=== PATIENT | female | born 1930 | race Caucasian/White ===

== ENCOUNTER 2017-06-10 09:00 | Emergency (ER) | payer MEDICARE ==
[2017-06-10 09:03] VITALS: BP 132/70; PULSE 86; RESP 17; TEMP 99.5
--- NOTE | 2017-06-10 09:25 | ED ---
Skin/Abscess/FB HPI - General Source: patient Mode of arrival: wheelchair Limitations: no limitations <Antonia Givens - Last Filed: 06/10/17 09:55> <Kaleb Awad - Last Filed: 06/10/17 10:01> - General Chief complaint: Skin/Abscess/Foreign Body Stated complaint: mouth sores Time Seen by Provider: 06/10/17 09:08 - History of Present Illness Initial comments: 86-year-old female patient presents to the emergency department today with caregiver for evaluation of rash to the right side of the face. Patient has history of dementia and is unable to provide history. Caregiver reports that rash started last evening and seemed to spread upon awakening this morning. He reports blistering to the face. States patient has been complaining of pain with a rash. He denies any fever or chills. Denies any drainage from the blisters. Caregiver denies any recent shortness breath, vomiting, diarrhea, constipation, weakness, hematuria, or urinary frequency. (Antonia iGvens) - Related Data Home Medications Medication Instructions Recorded Confirmed Calcium Carbonate [Antacid] 1,250 mg PO DAILY 07/01/13 02/24/15 Donepezil HCl [Aricept Odt] 10 mg PO DAILY 07/01/13 02/24/15 Aspirin 81 mg PO DAILY 10/10/13 02/24/15 Atorvastatin [Lipitor] 20 mg PO HS 10/10/13 02/24/15 Losartan Potassium [Cozaar] 50 mg PO DAILY 10/10/13 02/24/15 Levothyroxine Sodium [Synthroid] 50 mcg PO DAILY 01/13/15 02/24/15 Memantine [Namenda] 5 mg PO DAILY 01/13/15 02/24/15 Multivitamins, Thera [Theragran] 1 each PO DAILY@1200 01/13/15 02/24/15 [place]-3 Acid Ethyl Esters [Lovaza] 1 gm PO DAILY 01/13/15 02/24/15 Omeprazole [PriLOSEC] 20 mg PO AC-BRKFST 01/13/15 02/24/15 Sertraline HCl [Zoloft] 50 mg PO DAILY 01/13/15 02/24/15 ALPRAZolam [Xanax] 0.5 mg PO TID PRN 02/24/15 02/24/15 Cranberry Fruit Concentrate [Azo 500 mg PO DAILY 02/24/15 02/24/15 Cranberry] Ibuprofen [Advil] 200 mg PO Q6HR PRN 02/24/15 02/24/15 diphenhydrAMINE [Benadryl] 25 mg PO HS PRN 02/24/15 02/24/15 hydrOXYzine HCL [Atarax] 25 mg PO TID PRN 02/24/15 02/24/15 Previous Rx's Medication Instructions Recorded HYDROcodone/APAP 5-325MG [[place] 1 tab PO Q6HR PRN #30 tab 02/24/15 5-325] Bacitracin Oint 1 applic TOPICAL BID #15 gm 06/10/17 valACYclovir HCL [Valacyclovir] 1,000 mg PO TID #21 tab 06/10/17 Allergies Allergy/AdvReac Type Severity Reaction Status Date / Time No Known Allergies Allergy Verified 06/10/17 09:01 Review of Systems ROS Other: All systems not noted in ROS Statement are negative. <Antonia Givens - Last Filed: 06/10/17 09:55> ROS Other: All systems not noted in ROS Statement are negative. <Kaleb Awad - Last Filed: 06/10/17 10:01> ROS Statement: Those systems with pertinent positive or pertinent negative responses have been documented in the HPI. Past Medical History Past Medical History: Cancer, CVA/TIA, Dementia, Hyperlipidemia, Hypertension, Osteoarthritis (OA), Thyroid Disorder Additional Past Medical History / Comment(s): Stomach ulcer, hx bladder cancer History of Any Multi-Drug Resistant Organisms: None Reported Past Surgical History: Hysterectomy Additional Past Surgical History / Comment(s): Unknown Past Anesthesia/Blood Transfusion Reactions: No Reported Reaction Past Psychological History: Anxiety, Depression Smoking Status: Never smoker Past Alcohol Use History: None Reported Past Drug Use History: None Reported - Past Family History Mother Family Medical History: Cancer, Rheumatoid Arthritis (RA) Father Family Medical History: Coronary Artery Disease (CAD), CVA/TIA <Antonia Givens - Last Filed: 06/10/17 09:55> General Exam Limitations: no limitations General appearance: alert, in no apparent distress, other (This is a thin appearing elderly female patient in no acute distress. Vital signs upon presentation are temperature 99.5F, pulse 86, respirations 17, blood pressure 132/70, pulse ox 100% on room air.) Eye exam: Present: normal appearance, PERRL, EOMI. Absent: scleral icterus, conjunctival injection, periorbital swelling ENT exam: Present: mucous membranes moist, TM's normal bilaterally, normal external ear exam (Right ear is tender to touch however there is no evidence of vesicles or erythema on the right external auditory canal), other (Patient has blisters noted to the right lower lip, there is swelling and surrounding erythema. There is also a flat erythematous rash noted extending from the right lower lip up the right side of the face to near the ear.). Absent: normal exam Neck exam: Present: normal inspection. Absent: tenderness, meningismus, lymphadenopathy Respiratory exam: Present: normal lung sounds bilaterally. Absent: respiratory distress, wheezes, rales, rhonchi, stridor Cardiovascular Exam: Present: regular rate, normal rhythm, normal heart sounds. Absent: systolic murmur, diastolic murmur, rubs, gallop, clicks GI/Abdominal exam: Present: soft, normal bowel sounds. Absent: distended, tenderness, guarding, rebound, rigid Neurological exam: Present: alert, CN II-XII intact. Absent: oriented X3 ( Oriented 0) Psychiatric exam: Present: normal affect, normal mood Skin exam: Present: warm, dry, intact, normal color, rash (As discussed in ENT exam) <Antonia Givens - Last Filed: 06/10/17 09:55> Course <Antonia Givens - Last Filed: 06/10/17 09:55> <Kaleb Awad - Last Filed: 06/10/17 10:01> Vital Signs 06/10/17 09:01 Temperature 99.5 F Pulse Rate 86 Respiratory 17 Rate Blood Pressure 132/70 O2 Sat by Pulse 100 Oximetry - Reevaluation(s) Reevaluation #1: 06/10/17 10:00 I did personally do a [id number] evaluation the patient did discuss findings with her and her caregiver. The presentation is consistent with a herpes zoster of the face on the right side. I do agree with the assessment and plan. (Kaleb Awad) Medical Decision Making <Antonia Givens - Last Filed: 06/10/17 09:55> <Kaleb Awad - Last Filed: 06/10/17 10:01> - Medical Decision Making 86-year-old female patient presented to the emergency department today with caregiver for evaluation of rash to the right side of the face. Rash appears consistent with a herpes zoster infection. We will treat patient with valacyclovir. Did prescribe bacitracin to apply to open wounds. Caregiver is present, return parameters discussed in detail. They're instructed to follow- up with the primary care physician for recheck in 1-2 days. He verbalizes understanding and agrees with this plan. (Antonia Givens) Disposition Is patient prescribed a controlled substance at d/c from ED?: No Time of Disposition: 09:25 <Antonia Givens - Last Filed: 06/10/17 09:55> <Kaleb Awad - Last Filed: 06/10/17 10:01> Clinical Impression: Herpes zoster Disposition: HOME SELF-CARE Condition: Good Instructions: Shingles (ED) Additional Instructions: Take medications as directed. Apply topical antibiotic ointment to prevent infection. Follow up with the primary care physician for recheck in 1-2 days. Return here immediately for any new, worsening, or concerning symptoms. Prescriptions: Bacitracin Oint 1 applic TOPICAL BID #15 gm valACYclovir HCL [Valacyclovir] 1,000 mg PO TID #21 tab Referrals: Devonte Pan MD [Primary Care Provider] - 1-2 days
== END 2017-06-10 09:44 | disposition home or self-care (01) ==
LOC: EC 09:00
DX: B02.9 Zoster without complications (principal); F03.90 Unspecified dementia, unspecified severity, without behavioral disturbance, psychotic disturbance, mood disturbance, and anxiety; E78.5 Hyperlipidemia, unspecified; E07.9 Disorder of thyroid, unspecified; I10 Essential (primary) hypertension; F41.9 Anxiety disorder, unspecified; F32.9 Major depressive disorder, single episode, unspecified; Z85.42 Personal history of malignant neoplasm of other parts of uterus; Z86.73 Personal history of transient ischemic attack (TIA), and cerebral infarction without residual deficits; Z79.82 Long term (current) use of aspirin; Z79.899 Other long term (current) drug therapy
CPT/HCPCS: 99282

== ENCOUNTER 2017-08-15 14:43 | Inpatient (IN) | payer MEDICARE ==
--- NOTE | 2017-08-15 14:53 | ED ---
General Adult HPI - General Stated complaint: lt hip pain Time Seen by Provider: 08/15/17 14:43 Source: EMS, RN notes reviewed, old records reviewed Mode of arrival: EMS - History of Present Illness Initial comments: This is a 86-year-old female history dementia history of CVA history of anemia who is brought in by EMS with complaints of left hip pain. No recent falls or reported but apparently the patient has had episodes of falls last one being approximately week ago. She per report was ambulatory. She does seem to have pain with any type of palpation there is some questionable shortening of the left lower extremity compared to the right. No reports of fevers chills nausea vomiting sweats diarrhea constipation or other symptoms at this time. The patient is a poor historian - Related Data Home Medications Medication Instructions Recorded Confirmed Calcium Carbonate [Antacid] 1,250 mg PO DAILY 07/01/13 02/24/15 Donepezil HCl [Aricept Odt] 10 mg PO DAILY 07/01/13 02/24/15 Aspirin 81 mg PO DAILY 10/10/13 02/24/15 Atorvastatin [Lipitor] 20 mg PO HS 10/10/13 02/24/15 Losartan Potassium [Cozaar] 50 mg PO DAILY 10/10/13 02/24/15 Levothyroxine Sodium [Synthroid] 50 mcg PO DAILY 01/13/15 02/24/15 Memantine [Namenda] 5 mg PO DAILY 01/13/15 02/24/15 Multivitamins, Thera [Theragran] 1 each PO DAILY@1200 01/13/15 02/24/15 [place]-3 Acid Ethyl Esters [Lovaza] 1 gm PO DAILY 01/13/15 02/24/15 Omeprazole [PriLOSEC] 20 mg PO AC-BRKFST 01/13/15 02/24/15 Sertraline HCl [Zoloft] 50 mg PO DAILY 01/13/15 02/24/15 ALPRAZolam [Xanax] 0.5 mg PO TID PRN 02/24/15 02/24/15 Cranberry Fruit Concentrate [Azo 500 mg PO DAILY 02/24/15 02/24/15 Cranberry] Ibuprofen [Advil] 200 mg PO Q6HR PRN 02/24/15 02/24/15 diphenhydrAMINE [Benadryl] 25 mg PO HS PRN 02/24/15 02/24/15 hydrOXYzine HCL [Atarax] 25 mg PO TID PRN 02/24/15 02/24/15 Previous Rx's Medication Instructions Recorded HYDROcodone/APAP 5-325MG [[place] 1 tab PO Q6HR PRN #30 tab 02/24/15 5-325] Bacitracin Oint 1 applic TOPICAL BID #15 gm 06/10/17 valACYclovir HCL [Valacyclovir] 1,000 mg PO TID #21 tab 06/10/17 Allergies Allergy/AdvReac Type Severity Reaction Status Date / Time No Known Allergies Allergy Verified 08/15/17 15:42 Review of Systems ROS Statement: Those systems with pertinent positive or pertinent negative responses have been documented in the HPI. ROS Other: All systems not noted in ROS Statement are negative. Limitations: ROS unobtainable due to patients medical condition Past Medical History Past Medical History: Cancer, CVA/TIA, Dementia, Hyperlipidemia, Hypertension, Osteoarthritis (OA), Thyroid Disorder Additional Past Medical History / Comment(s): Stomach ulcer, hx bladder cancer History of Any Multi-Drug Resistant Organisms: None Reported Past Surgical History: Hysterectomy Additional Past Surgical History / Comment(s): Unknown Past Anesthesia/Blood Transfusion Reactions: No Reported Reaction Past Psychological History: Anxiety, Depression Smoking Status: Never smoker Past Alcohol Use History: None Reported Past Drug Use History: None Reported - Past Family History Mother Family Medical History: Cancer, Rheumatoid Arthritis (RA) Father Family Medical History: Coronary Artery Disease (CAD), CVA/TIA General Exam - General Exam Comments Initial Comments: This is a well-developed asthenic appearing female who is moaning at this time however this does appear to be her normal behavior per paramedics. General appearance: alert, anxious Head exam: Present: atraumatic, normocephalic, normal inspection Eye exam: Present: normal appearance, PERRL, EOMI. Absent: scleral icterus, conjunctival injection, periorbital swelling ENT exam: Present: normal exam, mucous membranes moist Neck exam: Present: normal inspection. Absent: tenderness, meningismus, lymphadenopathy Respiratory exam: Present: normal lung sounds bilaterally. Absent: respiratory distress, wheezes, rales, rhonchi, stridor Cardiovascular Exam: Present: regular rate, normal rhythm, normal heart sounds. Absent: systolic murmur, diastolic murmur, rubs, gallop, clicks GI/Abdominal exam: Present: soft, normal bowel sounds. Absent: distended, tenderness, guarding, rebound, rigid Extremities exam: Present: tenderness (Tenderness palpation of the left hip no definite step-off or crepitation there is some question of shortening but no rotation left lower extremity compared to the right.), normal capillary refill. Absent: pedal edema, joint swelling, calf tenderness Back exam: Present: full ROM, other (Mild kyphosis is demonstrated.). Absent: tenderness, CVA tenderness (R), CVA tenderness (L), muscle spasm, paraspinal tenderness Neurological exam: Present: alert, altered, CN II-XII intact Psychiatric exam: Present: normal affect, normal mood Skin exam: Present: warm, dry, intact, normal color. Absent: rash Course Vital Signs 08/15/17 14:49 Temperature 98.4 F Pulse Rate 99 Respiratory 16 Rate Blood Pressure 117/63 O2 Sat by Pulse 95 Oximetry EKG Findings - EKG Results: EKG: interpreted by ERMD (Sinus rhythm rate 94. Interval 122 QRS 104 QT since QTC of 460/520 evidence of incomplete right bundle-branch block and prolonged QT.) Medical Decision Making - Medical Decision Making I did discuss findings with the patient's daughter who was present. Patient will be admitted to orthopedics, Dr. Carney service, I did discuss the case with Ree Tucker. Dr. Rao will be consulted for medical clearance. - Radiology Data Radiology results: report reviewed (I did review the imaging and reports are is evidence of a surgical neck fracture left hip.), image reviewed Disposition Clinical Impression: Fracture of hip Disposition: ADMITTED IP TO THIS [facility] Condition: Stable Referrals: Devonte Pan MD [Primary Care Provider] - 1-2 days
[2017-08-15] MEDS ORDERED: ACETAMINOPHEN IV (For NPO) 1,000 MG in SALINE 1 100ML.BAG IVPB STA (15:16)
[2017-08-15] MEDS ORDERED: NALOXONE 0.4 MG/ML 1 ML VIAL IV PRN (15:27)
[2017-08-15] MEDS ORDERED: diphenhydrAMINE 25 MG CAP PO PRN (15:32)
[2017-08-15] MEDS ORDERED: ALPRAZolam 0.5 MG TAB PO PRN (15:32)
[2017-08-15] MEDS ORDERED: hydrOXYzine HCL 25 MG TAB PO PRN (15:32)
[2017-08-15 15:47] LABS: Basophils % (A) 0 %; Eosinophils % (A) 0 %; HGB 10.9 gm/dL (11.4-16.0); Lymphocytes % (A) 9 %; MCH 29.7 pg (25.0-35.0); MCHC 33.1 g/dL (31.0-37.0); MCV 89.7 fL (80.0-100.0); Mean Platelet Volume 7.1; Monocytes # (A) 0.6 k/uL (0-1.0); Monocytes % (A) 6 %; Neutrophils # (A) 8.6 k/uL (1.3-7.7); Neutrophils % (A) 83 %; Platelet Count 239 k/uL (150-450); RBC 3.68 m/uL (3.80-5.40); RDW 15.4 % (11.5-15.5); WBC 10.3 k/uL (3.8-10.6)
[2017-08-15 15:53] LABS: Amorphous Sediment,Urine Rare /hpf; Appearance,Urine Turbid (Clear); Bacteria,Urine Many /hpf; Bilirubin,Urine Negative (Negative); Blood,Urine Large (Negative); Color,Urine Yellow; Glucose,Urine (UA) Negative (Negative); Ketones,Urine Negative (Negative); Leukocyte Esterase,Urine Large (Negative); Mucus,Urine Rare /hpf; Nitrite,Urine Negative (Negative); PH, Urine 5.5 (5.0-8.0); Protein,Urine 1+ (Negative); RBC,Urine 120 /hpf (0-5); Specific Gravity,Urine 1.017 (1.001-1.035); Squamous Epithelial Cell,Urine 44 /hpf (0-4); Urobilinogen,Urine <2.0 mg/dL (<2.0); WBC,Urine 18 /hpf (0-5)
--- NOTE | 2017-08-15 15:53 | XR ---
EXAMINATION TYPE: XR Hip LT and AP Pelvis DATE OF EXAM: 08/15/2017 COMPARISON: Previous exam 02/24/2015 HISTORY: Trauma and pain TECHNIQUE: A single AP view of the pelvis is obtained. Two views of the left hip are obtained. FINDINGS: There is an intertrochanteric proximal left femoral fracture with resulting varus deformity . Bone mineralization is decreased. No evident dislocation. Vascular calcifications noted incidentall y. Degenerative disc change again noted in the lower lumbar spine. IMPRESSION: Proximal left femoral fracture
[2017-08-15 15:58] LABS: ALT 26 U/L (9-52); AST 38 U/L (14-36); Albumin 3.1 g/dL (3.5-5.0); Alkaline Phosphatase 132 U/L (38-126); Anion Gap 13 mmol/L; Blood Urea Nitrogen 15 mg/dL (7-17); Carbon Dioxide 23 mmol/L (22-30); Chloride 107 mmol/L (98-107); Glucose 158 mg/dL (74-99); Potassium 4.1 mmol/L (3.5-5.1); Sodium 143 mmol/L (137-145); Total Bilirubin 0.6 mg/dL (0.2-1.3); Total Protein 5.9 g/dL (6.3-8.2)
--- NOTE | 2017-08-15 15:58 | XR ---
EXAMINATION TYPE: XR chest 1V DATE OF EXAM: 08/15/2017 COMPARISON: Prior chest x-ray 02/24/2015 HISTORY: Left hip pain from fall, fracture TECHNIQUE: Single frontal view of the chest is obtained. FINDINGS: The chest wall deformities on the left are again noted and are stable. There is no evident pneumothorax or pleural effusion. There are also right sided rib fractures again noted. Cardiac medi astinal silhouette, pulmonary vascularity and eusebio are stable. IMPRESSION: No acute process. Old trauma changes.
[2017-08-15] MEDS: SODIUM CHLORIDE 0.9% 1,000 ML IV SCH (16:02)
[2017-08-15 16:06] LABS: Calcium 6.1 mg/dL (8.4-10.2)
[2017-08-15 17:09] VITALS: BMI 24.5
[2017-08-15 17:14] LABS: INR 1.2 (<1.2); Prothrombin Time 11.1 sec (9.0-12.0)
[2017-08-15] MEDS: HYDROmorphone 0.5 MG/0.5 ML SYRINGE IVP PRN ×2 (18:01→21:26)
[2017-08-15] MEDS ORDERED: SENNOSIDES-DOCUSATE SODIUM 1 EACH TAB PO PRN (19:52)
[2017-08-15] MEDS ORDERED: clonazePAM 0.5 MG TAB PO PRN (19:52)
--- NOTE | 2017-08-15 20:15 | XR ---
EXAMINATION TYPE: XR Hip Limited LT DATE OF EXAM: 08/15/2017 COMPARISON: Today HISTORY: Traction. Hip fracture TECHNIQUE: Single view. FINDINGS: There is fracture of the base of the femoral neck with coxa vera deformity. There is no change in pos ition compared to exam earlier today at 3:00 PM. There is no dislocation. IMPRESSION: Femoral neck fracture. No change in position.
--- NOTE | 2017-08-15 20:25 | CONS ---
CONSULTATION DATE OF CONSULTATION: 08/15/17. REASON FOR CONSULTATION: Medical management requested by Dr. Carney. CONSULTATION: This 86-year-old patient who is a resident of [facility], being followed by visiting physician Dr. Pan. The patient's daughter is at the bedside who provides most of the history. Chronic stable medical conditions include dementia, hypertension, hyperlipidemia, osteoarthritis, urine incontinence. At baseline, the patient has got a expressive aphasia. The patient can just about recognize some people. Patient is able to feed herself as a baseline and uses Depends. The patient is pretty much wheelchair- bound. Earlier today the patient went to move in bed and the patient was in increasing pain in the left hip area. The patient had fallen about a week or 10 days ago. The patient is brought into the ER. The patient's hip x-ray showed a proximal left femoral fracture. Hence, she was admitted. There is no cardiac history and of course patient exercise tolerance is very limited. The patient herself is not really able to say much. REVIEW OF SYSTEMS: Cannot be obtained as the patient has aphasia. Most of the supportive history is obtained by the daughter at the bedside. PAST MEDICAL HISTORY: Dementia, hypertension, hyperlipidemia, osteoarthritis, hypothyroid, anxiety, depression, gait dysfunction. PAST SURGICAL HISTORY: Hysterectomy. SOCIAL HISTORY: The patient drinks 3-4 glasses of wine per week. No smoking. Currently a resident of [facility]. FAMILY HISTORY: Rheumatoid arthritis. HOME MEDICATIONS: 1. Xylocaine viscous 2% 1 dose mucous membrane t.i.d. p.r.n. 2. Tylenol Extra Strength 1000 mg q.4 p.r.n. 3. Atarax 25 mg t.i.d. p.r.n. 4. Senokot S 1 tablet p.o. daily p.r.n. 5. Advil 200 mg q.6h p.r.n. 6. Klonopin 0.5 q.8h p.r.n. 7. Benadryl 25 mg q.6h p.r.n. 8. [place] 5 one tab b.i.d. p.r.n. 9. Xanax 0.5 p.o. t.i.d. p.r.n. 10.Prilosec 20 mg p.o. daily. 11.Vitamin D2 42224 units p.o. every 7 days. 12.Zoloft 50 mg p.o. q.h.s. 13.Sensipar 30 mg p.o. b.i.d. 14.Mycostatin 1 application topical b.i.d. 15.Cozaar 25 mg p.o. daily. 16.Synthroid 50 mcg a day. ALLERGIES: None. PHYSICAL EXAMINATION: Temperature 97.7, pulse 98, respiration 16, blood pressure 110/70, pulse ox 96% on room air. GENERAL APPEARANCE: Thin build, lying in bed, lethargic. EYES: Pupils equal. Conjunctivae normal. HEENT: External appearance of nose and ears normal. Oral cavity dry. NECK: JVD unable to assess. Mass not palpable. RESPIRATORY: Effort normal. Lungs, slightly decreased breath sounds. CARDIOVASCULAR: First and second sounds, no edema. ABDOMEN: Soft, nontender. Liver and spleen not palpable. LYMPHATIC: No lymph node palpable in the neck or axillae. PSYCHIATRY: Patient is lethargic, not able to assess. NEUROLOGICAL: Pupils equal. No facial asymmetry. Is moving upper limbs. LOWER EXTREMITIES: Limited range of motion of the left hip. MUSCULOSKELETAL: Evidence of osteoarthritis especially in the hands. Limited range of motion of the left hip. INVESTIGATIONS: White count 10.3, hemoglobin 10.9, potassium 4.1, calcium 6.1, albumin 3.1. UA showing 44 squamous epithelial cells. ASSESSMENT: 1. Acute left femoral neck fracture, probably spontaneous. 2. Severe osteopenia. 3. Primary osteoarthritis of multiple joints. 4. 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 5. Normocytic anemia cause unknown. 6. Hypertension. 7. Hyperlipidemia. 8. Hypothyroidism. 9. Chronic dysphagia. PLAN: Given that patient has limited mobility at a baseline, I am not sure if surgical repair will be of any benefit to the patient. Will let Orthopedics make a further determination of the same. If the patient is to proceed for surgery, she is going to be at a moderate risk because of fragile bones and multiple comorbidities and given her age. There is no otherwise absolute contraindication to surgery. Patient is already on subcu heparin for DVT prophylaxis. Care was discussed at length with the daughter at the bedside. The patient's code status is DO NOT RESUSCITATE. Thank you Dr. Carney. MMODL / IJN: [id number] /
[2017-08-15] MEDS: CINACALCET 30 MG TAB PO SCH (21:22)
[2017-08-15] MEDS: NYSTATIN 100,000 UNIT/GM POWD 15 GM TOPICAL SCH (21:25)
[2017-08-15] MEDS: HEPARIN SODIUM,PORCINE 5,000 UNIT/ML 1 ML VIAL SQ SCH (21:26)
[2017-08-16] MEDS: HYDROmorphone 0.5 MG/0.5 ML SYRINGE IVP PRN ×3 (04:39→16:59)
[2017-08-16] MEDS: LOSARTAN 50 MG TAB PO SCH (07:44)
--- NOTE | 2017-08-16 08:26 | P.HPOR ---
History of Present Illness H&P Date: 08/16/17 This is an 86-year-old female who was admitted for a left hip fracture after a fall. Patient's past medical history is significant for dementia, hypertension , hyperlipidemia, and urinary incontinence. Patient is a poor historian, and daughter is present in the room. The patient's daughter states that the patient has had 2 falls over the last month. Daughter states that the patient was complaining of severe pain when the nurses were trying to get her out of bed yesterday at her assisted living center. The patient was then brought to the emergency room for evaluation and admitted as an inpatient. Unable to obtain ROS as the patient is nonverbal. Review of Systems See HPI. Past Medical History Past Medical History: Cancer, CVA/TIA, Dementia, Hyperlipidemia, Hypertension, Osteoarthritis (OA), Thyroid Disorder Additional Past Medical History / Comment(s): Stomach ulcer, hx bladder cancer History of Any Multi-Drug Resistant Organisms: None Reported Past Surgical History: Hysterectomy Additional Past Surgical History / Comment(s): Unknown Past Anesthesia/Blood Transfusion Reactions: No Reported Reaction Past Psychological History: Anxiety, Depression Smoking Status: Never smoker Past Alcohol Use History: None Reported Additional Past Alcohol Use History / Comment(s): 3-4 GLASSES WINE PER WEEK Past Drug Use History: None Reported - Past Family History Mother Family Medical History: Cancer, Rheumatoid Arthritis (RA) Father Family Medical History: Coronary Artery Disease (CAD), CVA/TIA Medications and Allergies Home Medications Medication Instructions Recorded Confirmed Type Levothyroxine Sodium [Synthroid] 50 mcg PO DAILY 01/13/15 08/15/17 History Omeprazole [PriLOSEC] 20 mg PO DAILY 01/13/15 08/15/17 History Sertraline HCl [Zoloft] 50 mg PO HS 01/13/15 08/15/17 History ALPRAZolam [Xanax] 0.5 mg PO TID PRN 02/24/15 08/15/17 History Ibuprofen [Advil] 200 mg PO Q6HR PRN 02/24/15 08/15/17 History diphenhydrAMINE [Benadryl] 25 mg PO Q6HR PRN 02/24/15 08/15/17 History hydrOXYzine HCL [Atarax] 25 mg PO TID PRN 02/24/15 08/15/17 History Acetaminophen [Tylenol Extra 1,000 mg PO Q4HR PRN 08/15/17 08/15/17 History Strength] Cinacalcet HCl [Sensipar] 30 mg PO BID 08/15/17 08/15/17 History Ergocalciferol [Vitamin D2] 50,000 unit PO Q7D 08/15/17 08/15/17 History HYDROcodone/APAP 5-325MG [Shipman 1 tab PO BID PRN 08/15/17 08/15/17 History 5-325] Lidocaine Viscous [Xylocaine 1 dose MUCOUS MEM TID PRN 08/15/17 08/15/17 History Viscous 2%] Losartan [Cozaar] 25 mg PO DAILY 08/15/17 08/15/17 History Nystatin 100,000 Unit/gm Powd 1 applic TOPICAL BID 08/15/17 08/15/17 History [Mycostatin Powder] Sennosides-Docusate Sodium 1 tab PO DAILY PRN 08/15/17 08/15/17 History [Senokot-S] clonazePAM [KlonoPIN] 0.5 mg PO Q8HR PRN 08/15/17 08/15/17 History Allergies Allergy/AdvReac Type Severity Reaction Status Date / Time No Known Allergies Allergy Verified 08/15/17 15:42 Physical Examination On exam patient is lying in bed in no acute distress. Patient has dementia and is nonverbal. There is pain in the left hip with logroll of the left lower extremity. There is mild shortening of the left lower extremity. Left lower extremity is warm and well perfused. Sensation intact. Dorsalis pedis pulse 2+ . Neurovascular status and circulatory status are intact. Results X-rays of the left hip and pelvis with and without traction show a displaced femoral neck fracture of the left femur. - Labs Labs: Abnormal Lab Results - Last 24 Hours (Table) 08/15/17 08/15/17 08/15/17 Range/Units 15:20 15:20 15:20 RBC 3.68 L (3.80-5.40) m/uL Hgb 10.9 L (11.4-16.0) gm/dL Hct 33.0 L (34.0-46.0) % Neutrophils # 8.6 H (1.3-7.7) k/uL INR (<1.2) Glucose 158 H (74-99) mg/dL Calcium 6.1 L* (8.4-10.2) mg/dL AST 38 H (14-36) U/L Alkaline Phosphatase 132 H (38-126) U/L Total Creatine Kinase (30-135) U/L CK-MB (CK-2) (0.0-2.4) ng/mL Total Protein 5.9 L (6.3-8.2) g/dL Albumin 3.1 L (3.5-5.0) g/dL Urine Appearance Turbid H (Clear) Urine Protein 1+ H (Negative) Urine Blood Large H (Negative) Ur Leukocyte Esterase Large H (Negative) Urine RBC 120 H (0-5) /hpf Urine WBC 18 H (0-5) /hpf Urine WBC Clumps Moderate H (None) /hpf Ur Squamous Epith Cells 44 H (0-4) /hpf Amorphous Sediment Rare H (None) /hpf Urine Bacteria Many H (None) /hpf Urine Mucus Rare H (None) /hpf 08/15/17 08/15/17 Range/Units 16:34 16:34 RBC (3.80-5.40) m/uL Hgb (11.4-16.0) gm/dL Hct (34.0-46.0) % Neutrophils # (1.3-7.7) k/uL INR 1.2 H (<1.2) Glucose (74-99) mg/dL Calcium (8.4-10.2) mg/dL AST (14-36) U/L Alkaline Phosphatase (38-126) U/L Total Creatine Kinase 377 H (30-135) U/L CK-MB (CK-2) 5.0 H* (0.0-2.4) ng/mL Total Protein (6.3-8.2) g/dL Albumin (3.5-5.0) g/dL Urine Appearance (Clear) Urine Protein (Negative) Urine Blood (Negative) Ur Leukocyte Esterase (Negative) Urine RBC (0-5) /hpf Urine WBC (0-5) /hpf Urine WBC Clumps (None) /hpf Ur Squamous Epith Cells (0-4) /hpf Amorphous Sediment (None) /hpf Urine Bacteria (None) /hpf Urine Mucus (None) /hpf H & H 08/15/17 Range/Units 15:20 Hgb 10.9 L (11.4-16.0) gm/dL Hct 33.0 L (34.0-46.0) % Coagulation 08/15/17 Range/Units 16:34 INR 1.2 H (<1.2) Result Diagrams: 08/15/17 15:20 08/15/17 15:20 Assessment and Plan (1) Closed left hip fracture Current Visit: Yes Status: Acute Code(s): S72.002A - FRACTURE OF UNSP PART OF NECK OF LEFT FEMUR, INIT SNOMED Code(s): 224189255 (2) Fall Current Visit: No Status: Acute Code(s): W19.XXXA - UNSPECIFIED FALL, INITIAL ENCOUNTER SNOMED Code(s): 6782923 Plan: 1. Patient is to be NPO. 2. Nonweightbearing to the left lower extremity. 3. Continue pain control. 4. Appreciate input from medicine. 5. Closed reduction an intramedullary hip screw fixation scheduled for today pending consent.
[2017-08-16] MEDS: LEVOTHYROXINE 50 MCG TAB PO SCH (09:07)
[2017-08-16] MEDS: CINACALCET 30 MG TAB PO SCH ×2 (09:07→20:00)
[2017-08-16] MEDS: DONEPEZIL 10 MG TAB PO SCH (09:07)
[2017-08-16] MEDS: PANTOPRAZOLE 40 MG TABLET PO SCH (09:08)
[2017-08-16] MEDS: SERTRALINE 50 MG TAB PO SCH (09:08)
[2017-08-16] MEDS: MEMANTINE 5 MG TAB PO SCH (09:08)
[2017-08-16] MEDS: NYSTATIN 100,000 UNIT/GM POWD 15 GM TOPICAL SCH ×2 (09:08→20:00)
[2017-08-16] MEDS: HEPARIN SODIUM,PORCINE 5,000 UNIT/ML 1 ML VIAL SQ SCH (09:08)
[2017-08-16] MEDS ORDERED: IV FLUID CONTINUATION 650 ML IV ONE (09:18)
[2017-08-16] MEDS ORDERED: MAGNESIUM HYDROXIDE 2,400 MG/10 ML CUP PO PRN (09:21)
[2017-08-16] MEDS ORDERED: ceFAZolin IN SWFI 2 GM/20 ML SYRINGE IVP ONE (09:23)
[2017-08-16] MEDS ORDERED: LACTATED RINGERS 1,000 ML IV ONE (11:11)
--- NOTE | 2017-08-16 11:16 | P.OP ---
Date of Procedure: 08/16/17 Preoperative Diagnosis: Intertrochanteric fracture left hip Postoperative Diagnosis: Intertrochanteric fracture left hip Procedure(s) Performed: Close reduction and intramedullary hip screw fixation left hip Implants: [employer] intertan nail 125, 11.5 mm x 18 cm. [employer] Intertan integrated interlocking lag screw, 90 mm lag screw, 85 mm compression screw. [employer] L-P screw, 5.0 mm x 32.5 mm. Anesthesia: spinal Surgeon: Anderson [employer] Waiter/Waitress #1: Ree Tucker Estimated Blood Loss (ml): 50 Pathology: none sent Condition: stable Disposition: PACU Indications for Procedure: This is an 86-year-old female that fell at home a few days ago. She is brought to the emergency room for evaluation and found to have an intertrochanteric fracture of her left hip. After discussing the surgical and nonsurgical treatment options with her family at length, I recommended a close reduction and intramedullary hip screw fixation of her left hip. Informed consent was obtained. Operative Findings: The operative findings are consistent with a displaced intertrochanteric fracture of the left hip. Description of Procedure: The patient was seen in the preoperative area, consent was reviewed, and the operative site was marked with a skin marker. The patient was brought to the operating room and placed on the operating room table. Anesthesia was administered by the anesthesia department. 2 g of Ancef were administered intravenously. The patient was placed supine on the fracture table with the fractured extremity in traction boot. His other extremity was placed in a well leg oh and his bony prominences were padded. A universal timeout was then performed which confirmed the patient's name, surgical site, ALLERGIES, and consent. Fracture reduction was performed with traction and adduction maneuver which was confirmed with fluoroscopy. After reduction was performed, his extremity was then prepped and draped in the usual sterile fashion. Utilizing fluoroscopy to identify the tip of the greater trochanter, a 3 cm incision was made just proximal to the greater trochanter. Utilizing a curved awl, the starting hole was created at the tip of the greater trochanter and centralized in the AP plane. These locations were confirmed by fluoroscopy. Guidewire was then inserted down the medullary canal. Sequentially reaming of the femur was performed to 13 mm distally and 17 mm proximally. After reaming, appropriate size nail was inserted over the guidewire. The nail was inserted to the appropriate depth and the guidewire was removed. The lag screw targeting device was placed in the jig and a small skin incision was made and the targeting guide was placed down to bone. Utilizing the distally threaded guidewire, the guidewire was placed in the appropriate position in the femoral head, both anterior, posterior and mediolateral. Next, the drill for the second screw was then placed through the guide and drilled to the appropriate depth. The guidewire was measured and the appropriate depth was then reamed. The final size screw was placed to the appropriate depth. Traction was released and the fracture site was compressed with the aid of the second screw. The proximal drill guide was then removed and the distal drill guide was then inserted in the jig. Skin incision was made down to bone and the distal drill guide was then placed. Distal hole was then drilled and measured to the appropriate depth. Distal screw was then placed. The entire jig was then removed and final fluoroscopic x-rays were obtained. The wounds were then irrigated copiously with saline solution. Fascia was closed with 0-Vicryl. Subcutaneous tissues were closed with 2-0 Vicryl and the skin was closed with zechariah. Sterile dressings were applied. The patient was transported to the recovery room in stable condition. The assistant professor of radiology BREANNE Johnson was required due the complexity of the surgery, and the need for skilled surgical clinical reviewer.
--- NOTE | 2017-08-16 12:02 | XR ---
Limited left hip HISTORY: Fracture, open reduction internal fixation 2 intraoperative C-arm images document the procedure
--- NOTE | 2017-08-16 12:03 | FL ---
Fluoroscopy HISTORY: Fracture 42 seconds fluoroscopy time supplied to the referring clinician. 2 intraoperative C-arm images docum ent the procedure. See dictated report from orthopedic surgery.
[2017-08-16] MEDS: SODIUM CHLORIDE 0.9% 1,000 ML IV SCH ×3 (13:07→19:56)
[2017-08-16 14:52] LABS: Basophils % (A) 0 %; Eosinophils % (A) 0 %; HCT 33.5 % (34.0-46.0); HGB 10.8 gm/dL (11.4-16.0); Lymphocytes % (A) 7 %; MCH 29.8 pg (25.0-35.0); MCHC 32.1 g/dL (31.0-37.0); MCV 92.7 fL (80.0-100.0); Mean Platelet Volume 6.8; Monocytes # (A) 0.7 k/uL (0-1.0); Monocytes % (A) 5 %; Neutrophils % (A) 86 %; Platelet Count 206 k/uL (150-450); RBC 3.61 m/uL (3.80-5.40); RDW 15.4 % (11.5-15.5); WBC 13.9 k/uL (3.8-10.6)
[2017-08-16] MEDS: ceFAZolin IN SWFI 2 GM/20 ML SYRINGE IVP SCH (17:00)
[2017-08-16] MEDS ORDERED: ACETAMINOPHEN TAB 325 MG TAB PO STA (20:08)
--- NOTE | 2017-08-16 23:32 | PN ---
PROGRESS NOTE DATE OF SERVICE: 08/16/2017 PRESENTING COMPLAINT: Left hip surgery. INTERVAL HISTORY: Patient is status post intramedullary left hip screw placement secondary to a fracture. The patient is nonverbal, though follows some commands. REVIEW OF SYSTEMS: Unable to obtain. CURRENT MEDICATIONS: Reviewed. The patient is on Xarelto for DVT prophylaxis. PHYSICAL EXAMINATION: On examination, temperature 100.5, pulse 116, respiration 18, blood pressure 123/60, pulse ox 94% on room air. GENERAL APPEARANCE: Lying in bed, awake. EYES: Pupils equal. Conjunctivae normal. HEENT: External appearance of nose and ears normal. Oral cavity dry. NECK: JVD not raised. Mass not palpable. RESPIRATORY: Effort normal. LUNGS: Decreased breath sounds. CARDIOVASCULAR: First and second sounds normal. No edema. ABDOMEN: Soft, non-tender. Liver and spleen not palpable. PSYCHIATRY: Patient is awake. NEUROLOGICAL: Patient is dysarthric. INVESTIGATIONS: White count 13.9, hemoglobin 10.8. ASSESSMENT: 1. Acute left femoral neck fracture followed by intramedullary screw. 2. Acute urinary tract infection. 3. Severe osteopenia. 4. Primary osteoarthritis of multiple joints. 5. 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 6. Chronic dysarthria. 7. Normocytic anemia; cause unknown. 8. Essential hypertension. 9. Hyperlipidemia. 10.Hypothyroidism. PLAN: At this point we will give the patient one dose of IV ceftriaxone and switch the patient over to Keflex later on. Also will send off a UA and culture. Given patient's age, prognosis is guarded. MMODL / IJN: [id number] /
[2017-08-17] MEDS: HYDROmorphone 0.5 MG/0.5 ML SYRINGE IVP PRN ×3 (00:20→20:35)
[2017-08-17] MEDS: cefTRIAXone IN SWFI 1,000 MG/10 ML SYRINGE IVP SCH ×2 (00:21→10:46)
[2017-08-17] MEDS: SODIUM CHLORIDE 0.9% 1,000 ML IV SCH ×4 (00:21→18:39)
[2017-08-17 01:40] LABS: Appearance,Urine Turbid (Clear); Bilirubin,Urine Negative (Negative); Blood,Urine Large (Negative); Color,Urine Light Red; Glucose,Urine (UA) Negative (Negative); Ketones,Urine Negative (Negative); Leukocyte Esterase,Urine Moderate (Negative); Mucus,Urine Many /hpf; Nitrite,Urine Negative (Negative); PH, Urine 5.5 (5.0-8.0); Protein,Urine 1+ (Negative); RBC,Urine >182 /hpf (0-5); Urobilinogen,Urine <2.0 mg/dL (<2.0); WBC,Urine >182 /hpf (0-5)
[2017-08-17] MEDS: ceFAZolin IN SWFI 2 GM/20 ML SYRINGE IVP SCH (02:14)
[2017-08-17] MEDS: LEVOTHYROXINE 50 MCG TAB PO SCH (04:59)
[2017-08-17 06:55] LABS: Basophils % (A) 0 %; Eosinophils # (A) 0.1 k/uL (0-0.7); Eosinophils % (A) 1 %; HCT 26.8 % (34.0-46.0); Lymphocytes # (A) 1.3 k/uL (1.0-4.8); Lymphocytes % (A) 13 %; MCV 93.7 fL (80.0-100.0); Monocytes # (A) 0.5 k/uL (0-1.0); Monocytes % (A) 5 %; Neutrophils # (A) 8.2 k/uL (1.3-7.7); Neutrophils % (A) 79 %; Platelet Count 212 k/uL (150-450); RBC 2.87 m/uL (3.80-5.40); RDW 15.9 % (11.5-15.5); WBC 10.3 k/uL (3.8-10.6)
[2017-08-17 07:02] LABS: HGB 8.6 gm/dL (11.4-16.0)
--- NOTE | 2017-08-17 08:16 | P.PN ---
Subjective Progress Note Date: 08/17/17 This is an 86-year-old female who is status post closed reduction and intramedullary hip screw fixation of the left hip. This is postoperative day # 1. Patient is seen and evaluated at bedside. Patient is resting comfortably in bed. Patient is nonverbal and there is no family present on room. No events overnight Objective - Vital Signs Vital signs: Vital Signs Temp 98.6 F 08/17/17 07:46 Pulse 102 H 08/17/17 07:46 Resp 16 08/17/17 07:46 BP 133/59 08/17/17 07:46 Pulse Ox 95 08/17/17 07:46 Intake & Output 08/16/17 08/17/17 08/17/17 18:59 06:59 18:59 Intake Total 1750 630 Output Total 400 480 Balance 1350 150 Intake: IV 750 Intake, IV Titration 800 480 Amount Sodium Chloride 0.9% 1, 480 000 ml @ 65 mls/hr IV . [id number] [facility] Rx#:[id number] Sodium Chloride 0.9% 1, 800 000 ml @ 80 mls/hr IV . [id number] [facility] Rx#:[id number] Oral 200 150 Output: Urine 350 480 Estimated Blood Loss 50 Other: Voiding Method Indwelling Catheter Indwelling Catheter Indwelling Catheter # Voids 1 # Bowel Movements 0 - Exam Vital signs are stable. Patient is in no acute distress. Calf is soft and nontender to palpation. Dressing is clean, dry, and intact. Patient has full foot and ankle motion without pain or difficulty. Neurovascular status and circulatory status are intact. - Labs CBC & Chem 7: 08/17/17 06:26 08/15/17 15:20 Labs: Abnormal Lab Results - Last 24 Hours (Table) 08/16/17 08/17/17 08/17/17 Range/Units 14:09 01:10 06:26 WBC 13.9 H (3.8-10.6) k/uL RBC 3.61 L 2.87 L (3.80-5.40) m/uL Hgb 10.8 L 8.6 L D (11.4-16.0) gm/dL Hct 33.5 L 26.8 L (34.0-46.0) % RDW 15.9 H (11.5-15.5) % Neutrophils # 12.0 H 8.2 H (1.3-7.7) k/uL Urine Appearance Turbid H (Clear) Urine Protein 1+ H (Negative) Urine Blood Large H (Negative) Ur Leukocyte Esterase Moderate H (Negative) Urine RBC >182 H (0-5) /hpf Urine WBC >182 H (0-5) /hpf Urine Mucus Many H (None) /hpf Assessment and Plan (1) Closed left hip fracture Current Visit: Yes Status: Acute Code(s): S72.002A - FRACTURE OF UNSP PART OF NECK OF LEFT FEMUR, INIT SNOMED Code(s): 665224827 (2) Fall Current Visit: No Status: Acute Code(s): W19.XXXA - UNSPECIFIED FALL, INITIAL ENCOUNTER SNOMED Code(s): 7451934 Plan: 1. Nonweightbearing to left lower extremity. 2. Daily dressing changes. 3. Continue routine postoperative care and physical therapy. 4. DVT prophylaxis with Xarelto. 5. Appreciate input from medicine. 6. Awaiting discharge to rehab.
[2017-08-17] MEDS: DONEPEZIL 10 MG TAB PO SCH (10:46)
[2017-08-17] MEDS: MEMANTINE 5 MG TAB PO SCH (10:47)
[2017-08-17] MEDS: RIVAROXABAN 10 MG TAB PO SCH (10:47)
[2017-08-17] MEDS: SERTRALINE 50 MG TAB PO SCH (10:47)
[2017-08-17] MEDS: CINACALCET 30 MG TAB PO SCH ×2 (10:47→20:02)
[2017-08-17] MEDS: LOSARTAN 50 MG TAB PO SCH (10:47)
[2017-08-17] MEDS: PANTOPRAZOLE 40 MG TABLET PO SCH (10:47)
[2017-08-17] MEDS: ACETAMINOPHEN TAB 325 MG TAB PO PRN ×2 (10:52→19:54)
[2017-08-17] MEDS: NYSTATIN 100,000 UNIT/GM POWD 15 GM TOPICAL SCH ×3 (18:27→20:04)
--- NOTE | 2017-08-17 23:51 | PN ---
PROGRESS NOTE DATE OF SERVICE: 08/17/2017 PRESENTING COMPLAINT: Left hip surgery. INTERVAL HISTORY: Patient is status post fracture of the left hip, status post screw placement. Awake. Daughter is at bedside. Did eat a reasonable amount. Patient at baseline not able to communicate, is dysarthric. REVIEW OF SYSTEMS: The patient is dysarthric. CURRENT MEDICATIONS: Reviewed. EXAMINATION: Temperature 98.6, pulse 102, respirations 16, blood pressure 133/59, pulse ox 95% on room air. GENERAL APPEARANCE: Lying in bed, awake, comfortable. EYES: Pupils equal. Conjunctivae normal. HEENT: External nose and ears normal. Oral cavity normal. NECK: JVD not raised. Mass not palpable. RESPIRATORY: Effort normal. LUNGS: Decreased breath sounds. CARDIOVASCULAR: First and second sounds normal. No edema. ABDOMEN: Soft, nontender. Liver and spleen not palpable. NEUROLOGICAL: The patient is moving his limbs. INVESTIGATIONS: White count 10.3, hemoglobin 8.6. Urine cultures pending. ASSESSMENT: 1. Acute left femoral neck fracture followed by intramedullary screw. 2. Acute urinary tract infection. 3. Severe osteopenia. 4. Primary osteoarthritis of multiple joints. 5. Major neurocognitive disorder from underlying Alzheimer dementia. 6. Chronic dysarthria. 7. Normocytic anemia, cause unknown. 8. Essential hypertension. 9. Hyperlipidemia. 10.Hypothyroidism. Given her age, patient's overall prognosis is guarded. Continue current medication and treatment plan. Antibiotics will be finalized orally after cultures come back. Care was discussed with the daughter at the bedside. MMODL / IJN: [id number] /
[2017-08-18] MEDS: LEVOTHYROXINE 50 MCG TAB PO SCH (06:16)
[2017-08-18] MEDS: SODIUM CHLORIDE 0.9% 1,000 ML IV SCH ×3 (06:16→21:40)
[2017-08-18] MEDS: HYDROmorphone 0.5 MG/0.5 ML SYRINGE IVP PRN (06:33)
[2017-08-18 06:54] LABS: Basophils % (A) 0 %; Eosinophils # (A) 0.2 k/uL (0-0.7); Eosinophils % (A) 2 %; HCT 23.8 % (34.0-46.0); HGB 7.5 gm/dL (11.4-16.0); Lymphocytes # (A) 1.4 k/uL (1.0-4.8); Lymphocytes % (A) 13 %; MCH 29.7 pg (25.0-35.0); MCHC 31.6 g/dL (31.0-37.0); MCV 94.2 fL (80.0-100.0); Mean Platelet Volume 7.1; Monocytes # (A) 0.6 k/uL (0-1.0); Monocytes % (A) 5 %; Neutrophils # (A) 8.6 k/uL (1.3-7.7); Neutrophils % (A) 79 %; Platelet Count 203 k/uL (150-450); RBC 2.53 m/uL (3.80-5.40); RDW 15.9 % (11.5-15.5); WBC 10.9 k/uL (3.8-10.6)
[2017-08-18] MEDS: cefTRIAXone IN SWFI 1,000 MG/10 ML SYRINGE IVP SCH (09:22)
--- NOTE | 2017-08-18 10:12 | P.PN ---
Subjective Progress Note Date: 08/18/17 Principal diagnosis: Left hip fracture. This is an 86-year-old female who is status post close reduction with insertion of intramedullary hip screw of the left hip. She is postop day #2 today. She is stable from an orthopedic standpoint. She does not awaken for exam. Objective - Vital Signs Vital signs: Vital Signs Temp 98.1 F 08/18/17 07:15 Pulse 91 08/18/17 07:15 Resp 14 08/18/17 07:15 BP 108/58 08/18/17 07:15 Pulse Ox 97 08/18/17 07:15 Intake & Output 08/17/17 08/18/17 08/18/17 18:59 06:59 18:59 Intake Total 150 Output Total 370 220 200 Balance -370 -70 -200 Intake: Oral 150 Output: Urine 370 220 200 Uretheral (Wilburn) 120 200 Other: Voiding Method Indwelling Catheter Indwelling Catheter Indwelling Catheter - Exam This is an 86-year-old female in no acute distress. She is sleeping soundly. Exam left hip reveals that her dressing is clean, dry and intact. Pedal pulses +2/4. Neurovascular status to the lower extremity is intact. - Labs CBC & Chem 7: 08/18/17 06:13 08/15/17 15:20 Labs: Abnormal Lab Results - Last 24 Hours (Table) 08/18/17 Range/Units 06:13 WBC 10.9 H (3.8-10.6) k/uL RBC 2.53 L (3.80-5.40) m/uL Hgb 7.5 L (11.4-16.0) gm/dL Hct 23.8 L (34.0-46.0) % RDW 15.9 H (11.5-15.5) % Neutrophils # 8.6 H (1.3-7.7) k/uL Microbiology - Last 24 Hours (Table) 08/17/17 01:10 Urine Culture - Preliminary Urine,Catheterized Assessment and Plan (1) Closed left hip fracture Current Visit: Yes Status: Acute Code(s): S72.002A - FRACTURE OF UNSP PART OF NECK OF LEFT FEMUR, INIT SNOMED Code(s): 756982241 Plan: The clinical findings are discussed with the nursing staff. She is to continue current care. Plan discharged to [facility] Sunday.
[2017-08-18] MEDS: MEMANTINE 5 MG TAB PO SCH (12:32)
[2017-08-18] MEDS: SERTRALINE 50 MG TAB PO SCH (12:32)
[2017-08-18] MEDS: LOSARTAN 50 MG TAB PO SCH (12:34)
[2017-08-18] MEDS: PANTOPRAZOLE 40 MG TABLET PO SCH (12:34)
[2017-08-18] MEDS: DONEPEZIL 10 MG TAB PO SCH (12:35)
[2017-08-18] MEDS: CINACALCET 30 MG TAB PO SCH ×2 (12:37→21:40)
[2017-08-18] MEDS: RIVAROXABAN 10 MG TAB PO SCH (12:37)
[2017-08-18] MEDS: NYSTATIN 100,000 UNIT/GM POWD 15 GM TOPICAL SCH ×2 (12:37→21:40)
[2017-08-18] MEDS ORDERED: ONDANSETRON 4 MG/2 ML VIAL IVP PRN (17:09)
--- NOTE | 2017-08-19 04:10 | PN ---
PROGRESS NOTE DATE OF SERVICE: August 18, 2017. PRESENTING COMPLAINT: Left hip surgery. INTERVAL HISTORY: Patient is status post fracture, left hip, status post screw placement. Comfortable, out of the bedside. The patient is eating a pureed diet. The patient does follow commands and does smile. Patient at baseline dysarthric. REVIEW OF SYSTEMS: Patient is dysarthric. CURRENT MEDICATIONS: Reviewed. EXAMINATION: VITAL SIGNS: Temperature 98.1, pulse 91, respiration 14, blood pressure 108/68, pulse ox 97% on room air. GENERAL APPEARANCE: Lying in bed, smiling. EYES: Pupils equal. Conjunctivae normal. HEENT: External appearance of nose and ears normal. Oral cavity normal. NECK: Jugular venous distention not raised. Mass not palpable. RESPIRATORY: Effort normal. LUNGS: Decreased breath sounds. CARDIOVASCULAR: 1st and 2nd sounds normal. No edema. ABDOMEN: Soft, nontender. Liver and spleen not palpable. NEUROLOGICAL: Moving all limbs. INVESTIGATIONS: White count 10.9, hemoglobin 7.5. Urine culture no growth. ASSESSMENT: 1. Acute femoral neck fracture followed by IM screw. 2. Acute urinary tract infection. 3. Severe osteopenia. 4. Primary osteoarthritis multiple joints. 5. 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 6. Chronic dysarthria. 7. Normocytic anemia, cause unknown. 8. Essential hypertension. 9. Hyperlipidemia. 10.Hypothyroidism. PLAN: Continue current medication and treatment plan. We will switch the patient to Keflex. YESSENIA / MANIN: [id number] /
[2017-08-19] MEDS: HYDROmorphone 0.5 MG/0.5 ML SYRINGE IVP PRN ×2 (04:55→20:27)
[2017-08-19] MEDS: SODIUM CHLORIDE 0.9% 1,000 ML IV SCH ×3 (07:07→14:56)
[2017-08-19] MEDS: LOSARTAN 50 MG TAB PO SCH (08:12)
[2017-08-19] MEDS: RIVAROXABAN 10 MG TAB PO SCH (08:12)
[2017-08-19] MEDS: MEMANTINE 5 MG TAB PO SCH (08:12)
[2017-08-19] MEDS: SERTRALINE 50 MG TAB PO SCH (08:12)
[2017-08-19] MEDS: DONEPEZIL 10 MG TAB PO SCH (08:12)
[2017-08-19] MEDS: LEVOTHYROXINE 50 MCG TAB PO SCH (08:12)
[2017-08-19] MEDS: CINACALCET 30 MG TAB PO SCH ×2 (08:12→20:28)
[2017-08-19] MEDS: PANTOPRAZOLE 40 MG TABLET PO SCH (08:12)
[2017-08-19] MEDS: CEPHALEXIN 500 MG CAP PO SCH ×2 (08:18→15:56)
[2017-08-19] MEDS: NYSTATIN 100,000 UNIT/GM POWD 15 GM TOPICAL SCH ×2 (08:19→20:28)
--- NOTE | 2017-08-19 10:09 | P.PN ---
Subjective Progress Note Date: 08/19/17 Principal diagnosis: Left hip fracture. Status post IT nail left hip. This is an 86-year-old female who is status post close reduction with insertion of intramedullary hip screw of the left hip. She is postop day #3 today. She is stable from an orthopedic standpoint. She is a little more alert today. She is nonverbal. Objective - Vital Signs Vital signs: Vital Signs Temp 98.4 F 08/19/17 08:05 Pulse 86 08/19/17 08:05 Resp 14 08/19/17 08:05 BP 118/51 08/19/17 08:05 Pulse Ox 97 08/19/17 08:05 Intake & Output 08/18/17 08/19/17 08/19/17 18:59 06:59 18:59 Intake Total 520 1770 60 Output Total 550 650 Balance -30 1120 60 Intake: Intake, IV Titration 520 1320 Amount Sodium Chloride 0.9% 1, 520 1320 000 ml @ 65 mls/hr IV . [id number] [facility] Rx#:[id number] Oral 450 60 Output: Urine 550 650 Uretheral (Wilburn) 550 250 Other: Voiding Method Indwelling Catheter Diaper Incontinent # Voids 2 - Exam This is an 86-year-old female in no acute distress. She awakens for exam today. Exam left hip reveals that her dressing is clean, dry and intact. Pedal pulses +2/4. Neurovascular status to the lower extremity is intact. - Labs CBC & Chem 7: 08/18/17 06:13 08/15/17 15:20 Labs: Microbiology - Last 24 Hours (Table) 08/17/17 01:10 Urine Culture - Final Urine,Catheterized Assessment and Plan (1) Closed left hip fracture Current Visit: Yes Status: Acute Code(s): S72.002A - FRACTURE OF UNSP PART OF NECK OF LEFT FEMUR, INIT SNOMED Code(s): 152811031 Plan: The clinical findings are discussed with the nursing staff. We will continue current care. Plan discharged to [facility] Sunday.
[2017-08-19 14:59] VITALS: RESP 16
--- NOTE | 2017-08-19 20:17 | PN ---
PROGRESS NOTE DATE OF SERVICE: 08/19/17. PRESENTING COMPLAINT: Left hip surgery. INTERVAL HISTORY: Patient is status post left hip surgery. Pain is controlled. Slight nausea. Daughter is at the bedside. Otherwise looks comfortable. Patient is baseline dysarthric. REVIEW OF SYSTEMS: Patient dysarthric. CURRENT MEDICATIONS: Reviewed. EXAMINATION: Temperature 98.4, pulse 56, respirations 16, blood pressure 118/51, pulse ox 97% on room air. GENERAL APPEARANCE: Sitting up, awake. EYES: Pupils equal. Conjunctivae normal. HEENT: External appearance of nose and ears normal. Oral cavity normal. NECK: JVD not raised. Mass not palpable. RESPIRATORY: Effort, lungs decreased breath sounds. CARDIOVASCULAR: First and second sounds normal, no edema. ABDOMEN: Soft, nontender. Liver and spleen not palpable. NEUROLOGICAL: Unchanged. INVESTIGATIONS: Urine culture negative. ASSESSMENT: 1. Acute femoral fracture with IM screw of the left hip. 2. Acute urinary tract infection from cystitis. 3. Severe osteopenia. 4. Primary osteoarthritis in multiple joints. 5. 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 6. Chronic dysarthria. 7. Normocytic anemia cause unknown. 8. Essential hypertension. 9. Hyperlipidemia. 10.Hypothyroidism. 11.Nausea probably as a side effect of pain medication. PLAN: Continue current medication and treatment plan. Probably patient's nausea is coming from Dilaudid. She should be switched over to easier pain medication. MMODL / IJN: [id number] /
[2017-08-20] MEDS: CEPHALEXIN 500 MG CAP PO SCH ×2 (00:17→09:52)
[2017-08-20 07:05] VITALS: PULSE 82
[2017-08-20] MEDS: LEVOTHYROXINE 50 MCG TAB PO SCH (07:15)
[2017-08-20] MEDS: SODIUM CHLORIDE 0.9% 1,000 ML IV SCH (07:16)
--- NOTE | 2017-08-20 09:24 | P.DS ---
Providers Date of admission: 08/15/17 15:27 Expected date of discharge: 08/20/17 Attending physician: Anderson Carney Consults: 08/15/17 15:28 Consult Physician Urgent Consulting Provider: Pawel Rao Consult Reason/Comments: Medical clearance for left hip repair Do you want consulting provider notified?: Yes Primary care physician: Devonte Pan - Discharge Diagnosis(es) (1) Closed left hip fracture Current Visit: Yes Status: Acute (2) Fall Current Visit: No Status: Acute Hospital Course: This is a 87-year-old female who sustained an intertrochanteric left hip fracture after a fall. The patient presents for evaluation. After discussion and consideration the patient's family elect to proceed with closed reduction and intramedullary hip screw fixation of the left hip. The patient is seen preoperatively by Dr. Carney and medically cleared for surgery by internal medicine. Patient is admitted to [facility] on 08/15/2017 and closed reduction and intramedullary hip screw fixation of the left hip is done on 08/16/2017. The procedures performed without complication or sequelae. The patient is doing well postoperatively. Labs and vital signs are stable on day of discharge. On day of discharge patient's hip incision is healing well. There is minimal erythema. There is no drainage noted at this time. There is minimal soft tissue swelling to the hip and thigh. Patient has full foot and ankle motion without difficulty or pain. Neurovascular status to the left lower extremity is intact. Patient is discharged to rehab in good condition. Please see med rec for accurate list of home medications. Patient Condition at Discharge: Stable Plan - Discharge Summary Discharge Rx Participant: Yes New Discharge Prescriptions: New Rivaroxaban [Xarelto] 10 mg PO DAILY #30 tab Sennosides [Senokot] 1 tab PO BID #60 tablet Acetaminophen Tab [Tylenol Tab] 1 - 2 tab PO Q8H PRN #90 tablet PRN Reason: Pain No Action Sertraline HCl [Zoloft] 50 mg PO HS Omeprazole [PriLOSEC] 20 mg PO DAILY Levothyroxine Sodium [Synthroid] 50 mcg PO DAILY hydrOXYzine HCL [Atarax] 25 mg PO TID PRN PRN Reason: Itching Ibuprofen [Advil] 200 mg PO Q6HR PRN PRN Reason: Pain diphenhydrAMINE [Benadryl] 25 mg PO Q6HR PRN PRN Reason: Itching ALPRAZolam [Xanax] 0.5 mg PO TID PRN PRN Reason: Anxiety Acetaminophen [Tylenol Extra Strength] 1,000 mg PO Q4HR PRN PRN Reason: Pain Lidocaine Viscous [Xylocaine Viscous 2%] 1 dose MUCOUS MEM TID PRN PRN Reason: Pain Sennosides-Docusate Sodium [Senokot-S] 1 tab PO DAILY PRN PRN Reason: Constipation clonazePAM [KlonoPIN] 0.5 mg PO Q8HR PRN PRN Reason: Anxiety HYDROcodone/APAP 5-325MG [[place] 5-325] 1 tab PO BID PRN PRN Reason: Pain Ergocalciferol [Vitamin D2] 50,000 unit PO Q7D Cinacalcet HCl [Sensipar] 30 mg PO BID Nystatin 100,000 Unit/gm Powd [Mycostatin Powder] 1 applic TOPICAL BID Losartan [Cozaar] 25 mg PO DAILY Discharge Medication List Levothyroxine Sodium [Synthroid] 50 mcg PO DAILY 01/13/15 [History] Omeprazole [PriLOSEC] 20 mg PO DAILY 01/13/15 [History] Sertraline HCl [Zoloft] 50 mg PO HS 01/13/15 [History] ALPRAZolam [Xanax] 0.5 mg PO TID PRN 02/24/15 [History] Ibuprofen [Advil] 200 mg PO Q6HR PRN 02/24/15 [History] diphenhydrAMINE [Benadryl] 25 mg PO Q6HR PRN 02/24/15 [History] hydrOXYzine HCL [Atarax] 25 mg PO TID PRN 02/24/15 [History] Acetaminophen [Tylenol Extra Strength] 1,000 mg PO Q4HR PRN 08/15/17 [History] Cinacalcet HCl [Sensipar] 30 mg PO BID 08/15/17 [History] Ergocalciferol [Vitamin D2] 50,000 unit PO Q7D 08/15/17 [History] HYDROcodone/APAP 5-325MG [[place] 5-325] 1 tab PO BID PRN 08/15/17 [History] Lidocaine Viscous [Xylocaine Viscous 2%] 1 dose MUCOUS MEM TID PRN 08/15/17 [ History] Losartan [Cozaar] 25 mg PO DAILY 08/15/17 [History] Nystatin 100,000 Unit/gm Powd [Mycostatin Powder] 1 applic TOPICAL BID 08/15/17 [History] Sennosides-Docusate Sodium [Senokot-S] 1 tab PO DAILY PRN 08/15/17 [History] clonazePAM [KlonoPIN] 0.5 mg PO Q8HR PRN 08/15/17 [History] Acetaminophen Tab [Tylenol Tab] 1 - 2 tab PO Q8H PRN #90 tablet 08/17/17 [Rx] Rivaroxaban [Xarelto] 10 mg PO DAILY #30 tab 08/17/17 [Rx] Sennosides [Senokot] 1 tab PO BID #60 tablet 08/17/17 [Rx] Follow up Appointment(s)/Referral(s): Devonte Pan MD [Primary Care Provider] - 1-2 days Anderson Carney DO [Doctor of Osteopathic Medicine] - 08/31/17 9:30 am Activity/Diet/Wound Care/Special Instructions: Nonweightbearing to the left lower extremity. Daily dressing changes. Marilee may be removed 10-14 days postoperatively. May shower if no drainage from the incision. Follow-up with [facility] in 2 weeks, please call with any questions or concerns [phone]
[2017-08-20] MEDS: RIVAROXABAN 10 MG TAB PO SCH (09:51)
[2017-08-20] MEDS: LOSARTAN 50 MG TAB PO SCH (09:51)
[2017-08-20] MEDS: SERTRALINE 50 MG TAB PO SCH (09:51)
[2017-08-20] MEDS: CINACALCET 30 MG TAB PO SCH (09:51)
[2017-08-20] MEDS: MEMANTINE 5 MG TAB PO SCH (09:51)
[2017-08-20] MEDS: PANTOPRAZOLE 40 MG TABLET PO SCH (09:51)
[2017-08-20] MEDS: DONEPEZIL 10 MG TAB PO SCH (09:51)
[2017-08-20] MEDS: NYSTATIN 100,000 UNIT/GM POWD 15 GM TOPICAL SCH (13:45)
[2017-08-20] MEDS: ACETAMINOPHEN TAB 325 MG TAB PO PRN (14:13)
[2017-08-20 14:44] VITALS: BP 152/64; TEMP 97.6
[2017-08-20] MEDS ORDERED: CEPHALEXIN 500 MG CAP PO SCH (21:00)
--- NOTE | 2017-08-20 23:36 | PN ---
PROGRESS NOTE DATE OF SERVICE: August 20, 2017. PRESENTING COMPLAINT: Left hip surgery. INTERVAL HISTORY: Patient is status post left hip surgery. Doing well. Comfortable. Daughter at the bedside. Tolerating a diet. REVIEW OF SYSTEMS: Cannot be done. Patient dysarthric. MEDICATIONS: Current medications are reviewed. PHYSICAL EXAMINATION: VITAL SIGNS: Temperature 98, pulse 82, respiration 16, blood pressure 146/74, pulse ox 94%. GENERAL APPEARANCE: Sitting up, awake. EYES: Pupils equal. Conjunctivae normal. HEENT: External appearance of nose and ears normal. Oral cavity normal. NECK: JVD not raised. Mass not palpable. RESPIRATORY: Effort normal. LUNGS: Decreased breath sounds. CARDIOVASCULAR: 1st and 2nd sounds normal. No edema. ABDOMEN: Soft, nontender. Liver and spleen not palpable. NEUROLOGICAL: Patient at baseline is dysarthric. INVESTIGATIONS: White count 10.9, hemoglobin 7.5. ASSESSMENT: 1. Acute femoral neck fracture with IM screw of the left hip. 2. Acute urinary tract infection from cystitis. 3. Severe osteopenia. 4. Primary osteoarthritis of multiple joints. 5. 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 6. Chronic dysarthria. 7. Normocytic anemia cause unknown. 8. Essential hypertension. 9. Hyperlipidemia. 10.Hypothyroidism. 11.Nausea, side effect of pain medication, improved. PLAN: Patient is stable. Continue current medication and treatment plan. Care was discussed with daughter at the bedside. MMODL / MANIN: [id number] /
== END 2017-08-20 15:18 | disposition home or self-care (01) | DRG 481 ==
LOC: EC 14:43 → 3SUR 15:27
PROVIDERS: ADMIT Orthopaedic Surgery; ATTEND Orthopaedic Surgery
PROC: 0QS736Z Reposition Left Upper Femur with Intramedullary Internal Fixation Device, Percutaneous Approach (ICD-10-PCS; principal; 2017-08-16 10:05)
DX: S72.142A Displaced intertrochanteric fracture of left femur, initial encounter for closed fracture (principal); R47.01 Aphasia; D64.9 Anemia, unspecified; E03.9 Hypothyroidism, unspecified; E78.5 Hyperlipidemia, unspecified; F02.80 Dementia in other diseases classified elsewhere, unspecified severity, without behavioral disturbance, psychotic disturbance, mood disturbance, and anxiety; G30.9 Alzheimer's disease, unspecified; F32.9 Major depressive disorder, single episode, unspecified; F41.9 Anxiety disorder, unspecified; I10 Essential (primary) hypertension; M15.9 Polyosteoarthritis, unspecified; M85.80 Other specified disorders of bone density and structure, unspecified site; N30.90 Cystitis, unspecified without hematuria; R13.10 Dysphagia, unspecified; W19.XXXA Unspecified fall, initial encounter; Z79.899 Other long term (current) drug therapy; Z82.49 Family history of ischemic heart disease and other diseases of the circulatory system; Z85.51 Personal history of malignant neoplasm of bladder; Z86.73 Personal history of transient ischemic attack (TIA), and cerebral infarction without residual deficits; Z87.11 Personal history of peptic ulcer disease; Z90.710 Acquired absence of both cervix and uterus; Z79.890 Hormone replacement therapy; Z99.3 Dependence on wheelchair; R11.0 Nausea; T40.605A Adverse effect of unspecified narcotics, initial encounter; Z66 Do not resuscitate
CPT/HCPCS: 36415; 71045; 73501; 73502; 80053; 81001; 82550; 82553; 85025; 85610; 85730; 87086; 93005; 99285

== ENCOUNTER 2017-09-17 20:07 | Emergency (ER) | payer MEDICARE ==
[2017-09-17 20:20] VITALS: RESP 20
--- NOTE | 2017-09-17 21:24 | ED ---
Female Urogenital HPI - General Chief complaint: Urogenital Stated complaint: hematuria Time Seen by Provider: 09/17/17 20:54 Source: EMS, RN notes reviewed Mode of arrival: EMS Limitations: altered mental status - History of Present Illness Initial comments: This is an 87-year-old female with severe dementia who presents to the emergency department with chief complaint of hematuria. History is very limited due to patient's mentation. She is unable to provide any history. Patient lives in an assisted living home. It is reported the patient has been having hematuria for the past one day. No fevers. Patient's daughter does present to the emergency department and is able to contribute to the history. She states that she was told by a the detention that the patient has been having blood in her urine. She states that one month ago patient did have a left hip surgery and that they noticed some drainage coming from the incision sites. She was told that they did culture it and started patient on Keflex. No other known complaints at this time. - Related Data Home Medications Medication Instructions Recorded Confirmed Levothyroxine Sodium [Synthroid] 50 mcg PO DAILY 01/13/15 09/17/17 Omeprazole [PriLOSEC] 20 mg PO DAILY 01/13/15 09/17/17 Sertraline HCl [Zoloft] 50 mg PO DAILY@1700 01/13/15 09/17/17 ALPRAZolam [Xanax] 0.5 mg PO TID PRN 02/24/15 09/17/17 Ibuprofen [Advil] 200 mg PO Q6HR PRN 02/24/15 09/17/17 diphenhydrAMINE [Benadryl] 25 mg PO Q6HR PRN 02/24/15 09/17/17 hydrOXYzine HCL [Atarax] 25 mg PO TID PRN 02/24/15 09/17/17 Cinacalcet HCl [Sensipar] 30 mg PO BID 08/15/17 09/17/17 Ergocalciferol [Vitamin D2] 50,000 unit PO FR 08/15/17 09/17/17 HYDROcodone/APAP 5-325MG [[place] 1 tab PO TID PRN 08/15/17 09/17/17 5-325] Lidocaine Viscous [Xylocaine 1 dose MUCOUS MEM TID PRN 08/15/17 09/17/17 Viscous 2%] Losartan [Cozaar] 25 mg PO DAILY 08/15/17 09/17/17 Nystatin 100,000 Unit/gm Powd 1 applic TOPICAL BID 08/15/17 09/17/17 [Mycostatin Powder] Sennosides-Docusate Sodium 1 tab PO DAILY PRN 08/15/17 09/17/17 [Senokot-S] clonazePAM [KlonoPIN] 0.5 mg PO Q8HR PRN 08/15/17 09/17/17 Acetaminophen Tab [Tylenol Tab] 325 - 650 mg PO Q8H PRN 09/17/17 09/17/17 Cephalexin [Keflex] 500 mg PO TID 09/17/17 09/17/17 Ferrous Gluconate 324 mg PO BID 09/17/17 09/17/17 Sennosides [Senokot] 8.6 mg PO BID 09/17/17 09/17/17 guaiFENesin-DM 100-10MG/5ML 10 ml PO Q4HR PRN 09/17/17 09/17/17 [Robitussin DM] Previous Rx's Medication Instructions Recorded Rivaroxaban [Xarelto] 10 mg PO DAILY #30 tab 08/17/17 Allergies Allergy/AdvReac Type Severity Reaction Status Date / Time No Known Allergies Allergy Verified 09/17/17 20:30 Review of Systems ROS Statement: Those systems with pertinent positive or pertinent negative responses have been documented in the HPI. ROS Other: All systems not noted in ROS Statement are negative. Past Medical History Past Medical History: Cancer, CVA/TIA, Dementia, Hyperlipidemia, Hypertension, Osteoarthritis (OA), Thyroid Disorder Additional Past Medical History / Comment(s): Stomach ulcer, hx bladder cancer History of Any Multi-Drug Resistant Organisms: None Reported Past Surgical History: Hysterectomy Additional Past Surgical History / Comment(s): Unknown Past Anesthesia/Blood Transfusion Reactions: No Reported Reaction Past Psychological History: Anxiety, Depression Smoking Status: Never smoker Past Alcohol Use History: None Reported Past Drug Use History: None Reported - Past Family History Mother Family Medical History: Cancer, Rheumatoid Arthritis (RA) Father Family Medical History: Coronary Artery Disease (CAD), CVA/TIA General Exam - General Exam Comments Initial Comments: General: Awake and alert, well-developed; in no apparent distress. Repeats " yeah yeah yeah" frequently. HEENT: Head atraumatic, normocephalic. Pupils are equal, round and reactive to light. Extraocular movements intact. Oropharynx moist without erythema or exudate. Neck: Supple. Normal ROM. Cardiovascular: Regular rate and rhythm. No murmurs, rubs or gallops. Chest symmetrical. Respiratory: Lungs clear to auscultation bilaterally. No wheezes, rales or rhonchi. Normal respiratory effort with no use of accessory muscles. Abdomen: Soft, non-tender, non-distended. No rigidity, rebound or guarding. Normal bowel sounds in all 4 quadrants. Musculoskeletal: Normal ROM bilateral upper extremities. Bilateral feet are in wrapped in padding. Limited ROM of left hip due to pain. Skin: 2 incision sites noted to the left hip. These are covered. Small amount of purulent, green drainage noted to the proximal incision site. No surrounding erythema or warmth. Neurological: Alert and oriented only to self. Patient unable to obey commands or answer questions. No focal neuro deficits. Limitations: altered mental status Course Vital Signs 09/17/17 09/18/17 20:15 00:10 Pulse Rate 96 86 Respiratory 20 20 Rate Blood Pressure 127/67 143/72 O2 Sat by Pulse 97 99 Oximetry Medical Decision Making - Medical Decision Making This is an 87-year-old female who presents to the emergency department with chief complaint of hematuria. Caregivers at patient's residence noticed blood in the urine one day ago. No fevers. Patient is currently on Keflex to treat an incision site infection on the left hip from surgery one month ago. Urine did reveal a large amount of blood, many bacteria and high white blood cells. Urine is sent for culture and is pending. CBC and CMP were unremarkable. Computed tomography scan of the abdomen and pelvis without contrast was obtained. This revealed evidence for bilateral nonobstructing renal calculi. Calculi on the right side is at the right ureteropelvic junction and no hydronephrosis is noted. This case was discussed with attending physician, Dr. Perez. No signs of septic stone as patient's vital signs are stable, no fevers. She is in no acute distress. Recommended following up with urology for further evaluation. Patient is already on Keflex. Patient will be discharged home at this time. - Lab Data Result diagrams: 09/17/17 21:30 09/17/17 21:30 Lab Results 09/17/17 09/17/17 09/17/17 Range/Units 21:30 21:30 22:18 WBC 8.5 (3.8-10.6) k/uL RBC 4.05 (3.80-5.40) m/uL Hgb 11.6 D (11.4-16.0) gm/dL Hct 36.9 (34.0-46.0) % MCV 91.0 (80.0-100.0) fL MCH 28.5 (25.0-35.0) pg MCHC 31.3 (31.0-37.0) g/dL RDW 15.1 (11.5-15.5) % Plt Count 312 (150-450) k/uL Neutrophils % 64 % Lymphocytes % 27 % Monocytes % 5 % Eosinophils % 3 % Basophils % 0 % Neutrophils # 5.4 (1.3-7.7) k/uL Lymphocytes # 2.3 (1.0-4.8) k/uL Monocytes # 0.4 (0-1.0) k/uL Eosinophils # 0.2 (0-0.7) k/uL Basophils # 0.0 (0-0.2) k/uL Hypochromasia Moderate Sodium 142 (137-145) mmol/L Potassium 3.7 (3.5-5.1) mmol/L Chloride 107 (98-107) mmol/L Carbon Dioxide 27 (22-30) mmol/L Anion Gap 8 mmol/L BUN 16 (7-17) mg/dL Creatinine 0.54 (0.52-1.04) mg/dL Est GFR (CKD-EPI)AfAm >90 (>60 ml/min/1.73 sqM) Est GFR (CKD-EPI)NonAf 84 (>60 ml/min/1.73 sqM) Glucose 122 H (74-99) mg/dL Calcium 9.4 (8.4-10.2) mg/dL Total Bilirubin 0.4 (0.2-1.3) mg/dL AST 23 (14-36) U/L ALT 23 (9-52) U/L Alkaline Phosphatase 184 H (38-126) U/L Total Protein 6.5 (6.3-8.2) g/dL Albumin 3.3 L (3.5-5.0) g/dL Urine Color Dark Red Urine Appearance Bloody H (Clear) Urine RBC >182 H (0-5) /hpf Urine WBC 146 H (0-5) /hpf Ur Squamous Epith Cells 9 H (0-4) /hpf Urine Bacteria Many H (None) /hpf - Radiology Data Radiology results: report reviewed, image reviewed CT abdomen and pelvis without contrast impression: There is some scarring and atelectasis at the lung bases unchanged. Large hiatal hernia. Mild cardiomegaly with small pericardial effusion unchanged. Nonobstructing bilateral renal calculi. Calculi are increased compared to last exam. Calcified gallstones. Stable left renal cortical cyst. No sign of acute abdomen and pelvis. The right renal calculus is close to the ureteropelvic junction but there is no hydronephrosis. Disposition Clinical Impression: Hematuria, Nephrolithiasis Disposition: HOME SELF-CARE Condition: Good Instructions: Hematuria (ED), Kidney Stones (ED) Additional Instructions: Please follow-up with Dr. Bassett, urology within 1-2 days. Please follow up with primary care provider within 1-2 days. Return to emergency department if symptoms should worsen or any concerns arise. Is patient prescribed a controlled substance at d/c from ED?: No Referrals: Devonte Pan MD [Primary Care Provider] - 1-2 days Chinedu Bassett MD [STAFF PHYSICIAN] - 1-2 days Time of Disposition: 00:46
[2017-09-17 21:44] LABS: Basophils % (A) 0 %; Eosinophils # (A) 0.2 k/uL (0-0.7); Eosinophils % (A) 3 %; HCT 36.9 % (34.0-46.0); Hypochromasia Moderate; Lymphocytes # (A) 2.3 k/uL (1.0-4.8); Lymphocytes % (A) 27 %; MCH 28.5 pg (25.0-35.0); MCHC 31.3 g/dL (31.0-37.0); Mean Platelet Volume 6.8; Monocytes # (A) 0.4 k/uL (0-1.0); Monocytes % (A) 5 %; Neutrophils # (A) 5.4 k/uL (1.3-7.7); Neutrophils % (A) 64 %; Platelet Count 312 k/uL (150-450); RBC 4.05 m/uL (3.80-5.40); RDW 15.1 % (11.5-15.5); WBC 8.5 k/uL (3.8-10.6)
[2017-09-17 22:00] LABS: HGB 11.6 gm/dL (11.4-16.0)
[2017-09-17 22:09] LABS: ALT 23 U/L (9-52); AST 23 U/L (14-36); Albumin 3.3 g/dL (3.5-5.0); Alkaline Phosphatase 184 U/L (38-126); Anion Gap 8 mmol/L; Blood Urea Nitrogen 16 mg/dL (7-17); Calcium 9.4 mg/dL (8.4-10.2); Carbon Dioxide 27 mmol/L (22-30); Chloride 107 mmol/L (98-107); Glucose 122 mg/dL (74-99); Potassium 3.7 mmol/L (3.5-5.1); Sodium 142 mmol/L (137-145); Total Bilirubin 0.4 mg/dL (0.2-1.3); Total Protein 6.5 g/dL (6.3-8.2)
[2017-09-17 22:41] LABS: Bacteria,Urine Many /hpf; RBC,Urine >182 /hpf (0-5); Squamous Epithelial Cell,Urine 9 /hpf (0-4); WBC,Urine 146 /hpf (0-5)
[2017-09-17 22:44] LABS: Appearance,Urine Bloody (Clear); Color,Urine Dark Red
[2017-09-17] MEDS ORDERED: ALPRAZolam 0.5 MG TAB PO STA (23:03)
--- NOTE | 2017-09-17 23:53 | CT ---
EXAMINATION TYPE: CT abdomen pelvis wo con DATE OF EXAM: 09/17/2017 COMPARISON: 07/23/2012 HISTORY: No prior, poor historian, AMS, hematuria x1 day, s/p left hip ORIF [address] DLP: 391.80 mGycm Automated exposure control for dose reduction was used. TECHNIQUE: Helical acquisition of images was performed from the lung bases through the pelvis. FINDINGS: There is elevated right diaphragm. There is a large hiatal hernia. There is some patchy scarring and atelectasis at the lung bases. There is deformity of multiple left ribs. There is small pericardial e ffusion. There are calcified gallstones. Spleen appears normal. There is no pancreatic mass. Liver shows no fo amita defect. There is no adrenal mass. There is a 1 cm calcification at the right renal pelvis. There is no hydron ephrosis. There is 3 mm calcification in the lateral left kidney. There is 3 cm cortical cyst lower p ole left kidney. There is no retroperitoneal adenopathy. There is no intestinal wall thickening. Ther e are no dilated loops. There is retained fecal material in the rectum. There is a left hip nailing. There is osteopenia. There are spondylotic changes in the lumbar spine with levorotoscoliosis. IMPRESSION: THERE IS SOME SCARRING AND ATELECTASIS AT THE LUNG BASES UNCHANGED. LARGE HIATAL HERNIA. MILD CARDIOM EGALY WITH SMALL PERICARDIAL EFFUSION UNCHANGED. NONOBSTRUCTING BILATERAL RENAL CALCULI. CALCULI ARE INCREASED COMPARED TO LAST EXAM. CALCIFIED GALLST ONES. STABLE LEFT RENAL CORTICAL CYST. NO SIGN OF ACUTE ABDOMEN AND PELVIS. THE RIGHT RENAL CALCULUS IS LATRICIA SE TO THE URETEROPELVIC JUNCTION BUT THERE IS NO HYDRONEPHROSIS.
[2017-09-18 01:53] VITALS: BP 143/79; PULSE 82; TEMP 97.3
== END 2017-09-18 01:53 | disposition home or self-care (01) ==
LOC: EC 20:07
DX: N20.0 Calculus of kidney (principal); I10 Essential (primary) hypertension; M19.90 Unspecified osteoarthritis, unspecified site; E07.9 Disorder of thyroid, unspecified; F32.9 Major depressive disorder, single episode, unspecified; F41.9 Anxiety disorder, unspecified; Z87.19 Personal history of other diseases of the digestive system; Z90.710 Acquired absence of both cervix and uterus; Z86.73 Personal history of transient ischemic attack (TIA), and cerebral infarction without residual deficits; Z85.51 Personal history of malignant neoplasm of bladder; Z79.899 Other long term (current) drug therapy
CPT/HCPCS: 36415; 74176; 80053; 81001; 85025; 87077; 87086; 87186; 99284

== ENCOUNTER 2017-10-09 09:18 | Inpatient (IN) | payer MEDICARE ==
[2017-10-04 08:47] VITALS: BMI 19.3
[~2017-10-09 09:18] MED LIST: DEXAMETHASONE SOD PHOSPHATE 10 MG/ML 1 ML VIAL IV ONE; LIDOCAINE 1% 20 ML VIAL (10MG/ML) FOR IV START INTRADERMA PRN; MIDAZOLAM 2 MG/2 ML VIAL IV PRN; ONDANSETRON 4 MG/2 ML VIAL IVP ONE; ceFAZolin IN SWFI 2 GM/20 ML SYRINGE IVP ONE; fentaNYL (PF) 50 MCG/ML 2 ML AMP IV PRN
[2017-10-09] MEDS ORDERED: ONDANSETRON 4 MG/2 ML VIAL ONE (09:48)
[2017-10-09] MEDS: LACTATED RINGERS 1,000 ML IV SCH ×2 (10:05→13:57)
[2017-10-09 10:12] LABS: INR 1.1 (<1.2); Partial Thromboplastin Time 23.1 sec (22.0-30.0); Prothrombin Time 10.9 sec (9.0-12.0)
[2017-10-09 10:16] LABS: Glucose,Whole Blood 107 mg/dL (75-99)
[2017-10-09] MEDS ORDERED: SUCCINYLCHOLINE CHLORIDE 100 MG/5 ML SYR IV ONE (11:21)
[2017-10-09] MEDS ORDERED: ROCURONIUM BROMIDE 10 MG/ML 10 ML VIAL IV ONE (11:21)
[2017-10-09] MEDS ORDERED: HYDROmorphone (PF) 1 MG/ML ONE (11:21)
[2017-10-09] MEDS ORDERED: PROPOFOL 10 MG/ML 20 ML VIAL IV ONE (11:21)
[2017-10-09] MEDS ORDERED: LIDOCAINE 1% INJ 10MG/ML (20 ML MDV) ONE (11:21)
[2017-10-09] MEDS ORDERED: fentaNYL (PF) 50 MCG/ML 2 ML AMP ONE (11:21)
[2017-10-09] MEDS ORDERED: ceFAZolin 3,000 MG in SODIUM CHLORIDE 0.9% IRRIGATIO 3,000 ML IRRIGATION ONE (12:03)
--- NOTE | 2017-10-09 12:42 | P.OP ---
Date of Procedure: 10/09/17 Preoperative Diagnosis: Failure of hardware status post left hip intramedullary nailing Postoperative Diagnosis: Failure of hardware status post left hip intramedullary nailing Procedure(s) Performed: Removal of hardware and Girdlestone arthroplasty left hip Anesthesia: spinal Surgeon: Anderson Carney Signal Constructor #1: Ree Tucker Estimated Blood Loss (ml): 200 Pathology: other (Femoral head) Condition: stable Disposition: PACU Indications for Procedure: This is an 87-year-old female that sustained an intertrochanteric fracture of her left hip and subsequently had a close reduction and intramedullary hip screw fixation of that hip. The patient is a minimal ambulator basically transfers only. On follow-up visit x-rays demonstrated that the lag screws had cut out of the femoral head. Due to the patient's age, mental status, and nonambulatory status, I recommended a Girdlestone arthroplasty of the hip. The other option of a conversion hemiarthroplasty was also discussed at length with the family. Due to her limited ambulation and difficulty with compliance, I felt that a hemiarthroplasty would likely have a significant amount of complications associated with it, mostly a very high risk of dislocation. I discussed what a Girdlestone arthroplasty is at length with the family, and they wished to proceed with a Girdlestone arthroplasty. Informed consent was obtained Operative Findings: Operative findings are consistent with failure of the hardware of the left hip intramedullary nailing. Description of Procedure: Patient was seen and evaluated in the preoperative area, consent was reviewed and the operative site was marked with a skin marker. Patient was then brought to the operating room and given 2 g of Ancef intravenously. A spinal anesthetic was administered by the anesthesia department. Patient was then placed in a lateral decubitus position and held with a [facility]. The bony prominences were well-padded and an axillary roll was placed. The hip was then prepped and draped in the usual sterile fashion. A universal timeout was then performed which confirmed the patient's name, surgical site, ALLERGIES, and procedure. A standard anterolateral approach the hip was performed. Skin and subcutaneous tissues were sharply incised with an incision centered over the tip of the greater trochanter. The incision was carefully dissected down to the fascia. The fascia was then split in line with skin incision and a Charnley retractor was gently placed. Then, using the appropriate tools, the hip screw and intramedullary lana was then removed. The femoral head and part of the trochanter was also removed. Then using a saw, the proximal femur was freshened with a saw blade. The hip was then copiously irrigated with pulsatile lavage. The abductors were then repaired through drill holes to the bone with the proximal femur. The fascia was then closed with #1 strata fix suture. Followed by 3-0 strata fix suture. The subcutaneous tissue and Dermabond for the skin. The patient was then transferred recovery room stable condition Signal Constructor BREANNE Johnson was required due to the complexity of surgery the need for skilled permit review assistant. She assisted with positioning the patient , draping the patient, retraction during the surgery, and closure of the wound.
[2017-10-09] MEDS ORDERED: HYDROmorphone 1 MG/ML 1 ML SYRINGE IVP PRN ×2 (13:00)
[2017-10-09] MEDS ORDERED: MAGNESIUM HYDROXIDE 2,400 MG/10 ML CUP PO PRN (13:00)
[2017-10-09] MEDS ORDERED: NALOXONE 0.4 MG/ML 1 ML VIAL IV PRN (13:00)
[2017-10-09] MEDS ORDERED: ONDANSETRON 4 MG/2 ML VIAL IVP PRN (13:00)
[2017-10-09] MEDS ORDERED: Acetaminophen-Codeine 300-30mg TAB PO PRN (13:00)
[2017-10-09] MEDS ORDERED: HYDROmorphone 1 MG/ML 1 ML SYRINGE IVP ONE (13:11)
[2017-10-09 14:15] LABS: Basophils % (A) 0 %; Eosinophils # (A) 0.1 k/uL (0-0.7); Eosinophils % (A) 0 %; HCT 43.2 % (34.0-46.0); HGB 12.5 gm/dL (11.4-16.0); Hypochromasia Marked; Lymphocytes # (A) 3.3 k/uL (1.0-4.8); Lymphocytes % (A) 20 %; MCH 27.8 pg (25.0-35.0); MCHC 28.8 g/dL (31.0-37.0); Mean Platelet Volume 6.7; Monocytes # (A) 0.6 k/uL (0-1.0); Monocytes % (A) 4 %; Neutrophils # (A) 12.5 k/uL (1.3-7.7); Neutrophils % (A) 75 %; Platelet Count 413 k/uL (150-450); RBC 4.48 m/uL (3.80-5.40); RDW 15.2 % (11.5-15.5); WBC 16.6 k/uL (3.8-10.6)
[2017-10-09 14:20] LABS: MCV 96.4 fL (80.0-100.0)
[2017-10-09] MEDS: SODIUM CHLORIDE 0.9% 1,000 ML IV SCH (14:54)
[2017-10-09] MEDS ORDERED: SENNOSIDES 8.6 MG TAB PO SCH (21:00)
[2017-10-09] MEDS ORDERED: DEXAMETHASONE 0.5 MG TAB PO SCH (21:00)
[2017-10-09] MEDS: ceFAZolin IN SWFI 2 GM/20 ML SYRINGE IVP SCH (22:18)
--- NOTE | 2017-10-09 22:35 | CONS ---
CONSULTATION DATE OF CONSULTATION: 10/09/2017 REASON FOR CONSULTATION: Medical management requested by Dr. Carney. CONSULTATION: This is an 87-year-old patient who is a resident of [facility]. History is obtained by the daughter at the bedside. The patient is followed by visiting physician, Dr. Pan. The patient's chronic stable medical conditions include dementia, hypertension, hyperlipidemia, osteoarthritis, urine incontinence. The patient at baseline has an expressive aphasia and can say a few words. The patient is able to recognize her daughter. Uses Depends and is wheelchair bound. The patient underwent ORIF of the left hip following a fracture secondary to a fall. This did get secondarily infected with drainage. Patient was taken to the OR today. The hardware was removed. The patient is somewhat lethargic post procedure, but not in distress. Daughter is at the bedside. REVIEW OF SYSTEMS: Cannot be obtained from the patient as patient is aphasic. History as above from the daughter. PAST MEDICAL HISTORY: Dementia, hypertension, hyperlipidemia, osteoarthritis, hypothyroid, anxiety, depression, gait dysfunction, expressive aphasia. PAST SURGICAL HISTORY: Hysterectomy, ORIF of the left hip. SOCIAL HISTORY: The patient used to drink 3 to 4 glasses of wine per week. No smoking. Resident of [facility]. FAMILY HISTORY: Rheumatoid arthritis. HOME MEDICATIONS: 1. Zoloft 50 mg at 5:00 pm. 2. Senokot 8.6 mg b.i.d. 3. Xarelto 10 mg p.o. daily. 4. Prilosec 20 mg p.o. daily. 5. Mycostatin topical b.i.d. 6. Cozaar 25 p.o. daily. 7. Synthroid 50 mcg p.o. daily. 8. [place] 10 one tablet p.o. q.6 p.r.n. 9. Vitamin D2 50,000 units p.o. Sunday. 10.Marinol 2.5 mg p.o. b.i.d. 11.Dexamethasone 5 mg p.o. b.i.d. 12.Sensipar 30 mg p.o. daily. 13.Tylenol 325 or 650 mg q.8h p.r.n. ALLERGIES: None. PHYSICAL EXAMINATION: Temperature 97.8, pulse 56, respiration 15, blood pressure 89/45, pulse ox 95% on 2 L. GENERAL APPEARANCE: Lying in bed, lethargic, but arousable. EYES: Pupil are equal and conjunctiva pale. HEENT: External nose is normal. Oral cavity dry. NECK: JVD unable to assess. Mass not palpable. Respiratory effort normal. LUNGS: Decreased breath sounds. CARDIOVASCULAR: First and seconds sounds, no edema. ABDOMEN: Soft, nontender. Liver and spleen not palpable. LYMPHATICS: No lymph nodes palpable in the neck or axillae. PSYCHIATRY: The patient lethargic, not able to assess. NEUROLOGICAL: No facial asymmetry. The patient is not following commands. The patient has been lethargic. MUSCULOSKELETAL: Evidence of osteoarthritis especially in the hands. Dressing over the left hip. INVESTIGATIONS: White count 16.6 and hemoglobin 12.5. ASSESSMENT: 1. 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 2. Severe osteopenia. 3. Primary osteoarthritis multiple joints. 4. Major neuro cognitive disorder from underlying late onset Alzheimer's dementia at baseline. 5. Normocytic anemia, cause unknown. 6. Essential hypertension, history of. 7. Hyperlipidemia. 8. Hypothyroidism. 9. Chronic dysphagia. 10.Postop hypotension likely from anesthesia. 11.Metabolic encephalopathy from IV Dilaudid the patient just received. PLAN: Should DC the patient's Dilaudid respirations. Care was discussed at length with the patient's daughter at the bedside. She wants the patient to be comfortable. Other medications was to continue. We will hold off giving any fluid boluses for right now. May use IV till patient wakes up. Thank you, Dr. Carney. TIMBOL / MANIN: [id number] /
[2017-10-09] MEDS: SENNOSIDES-DOCUSATE SODIUM 1 EACH TAB PO SCH (23:09)
[2017-10-09] MEDS: DRONABINOL 2.5 MG CAP PO SCH (23:09)
[2017-10-09] MEDS: HYDROCORTISONE SUCCINATE 100 MG/2 ML VIAL IV SCH (23:10)
[2017-10-10 00:35] LABS: Appearance,Urine Turbid (Clear); Bilirubin,Urine 1+ (Negative); Blood,Urine Large (Negative); Budding Yeast,Urine Occasional /hpf; Color,Urine Dark Brown; Glucose,Urine (UA) Negative (Negative); Ketones,Urine Trace (Negative); Leukocyte Esterase,Urine Large (Negative); Nitrite,Urine Negative (Negative); PH, Urine 5.5 (5.0-8.0); Protein,Urine 2+ (Negative); RBC,Urine >182 /hpf (0-5); Specific Gravity,Urine 1.026 (1.001-1.035); Squamous Epithelial Cell,Urine 1 /hpf (0-4); Urobilinogen,Urine <2.0 mg/dL (<2.0)
[2017-10-10] MEDS: HYDROCORTISONE SUCCINATE 100 MG/2 ML VIAL IV SCH ×3 (02:37→16:42)
[2017-10-10] MEDS: ceFAZolin IN SWFI 2 GM/20 ML SYRINGE IVP SCH (04:27)
[2017-10-10] MEDS: SODIUM CHLORIDE 0.9% 1,000 ML IV SCH ×2 (04:29→22:25)
[2017-10-10] MEDS: HYDROmorphone 1 MG/ML 1 ML SYRINGE IVP PRN ×2 (07:50→17:50)
[2017-10-10] MEDS: LEVOTHYROXINE 50 MCG TAB PO SCH (07:56)
[2017-10-10] MEDS ORDERED: cefTRIAXone IN SWFI 1,000 MG/10 ML SYRINGE IVP STA (08:43)
--- NOTE | 2017-10-10 08:50 | P.PN ---
Subjective Progress Note Date: 10/10/17 This is an 87 year-old female who is status post girdle stone arthroplasty. This is postoperative day #1. Patient is nonverbal. Per the nurses, patient has been in pain which is being controlled with Dilaudid at this time. Objective - Vital Signs Vital signs: Vital Signs Temp 98.4 F 10/10/17 07:31 Pulse 106 H 10/10/17 07:31 Resp 20 10/10/17 07:31 BP 105/67 10/10/17 07:31 Pulse Ox 98 10/10/17 04:40 Intake & Output 10/09/17 10/10/17 10/10/17 18:59 06:59 18:59 Intake Total 901 875 Output Total 700 Balance 201 875 Weight 48.081 kg Intake: IV 901 Intake, IV Titration 875 Amount Sodium Chloride 0.9% 1, 875 000 ml @ 65 mls/hr IV . [id number] [facility] Rx#:[id number] Output: Urine 500 Estimated Blood Loss 200 Other: Voiding Method Indwelling Catheter Indwelling Catheter - Exam Vital signs are stable. Patient is in no acute distress. Calf is soft and nontender to palpation. Dressing is clean, dry, and intact. Patient has full foot and ankle motion without pain or difficulty. Neurovascular status and circulatory status are intact. - Labs CBC & Chem 7: 10/09/17 14:02 Labs: Abnormal Lab Results - Last 24 Hours (Table) 10/09/17 10/09/17 10/09/17 Range/Units 00:10 09:44 14:02 WBC 16.6 H (3.8-10.6) k/uL MCHC 28.8 L (31.0-37.0) g/dL Neutrophils # 12.5 H (1.3-7.7) k/uL POC Glucose (mg/dL) 107 H (75-99) mg/dL Urine Appearance Turbid H (Clear) Urine Protein 2+ H (Negative) Urine Ketones Trace H (Negative) Urine Blood Large H (Negative) Urine Bilirubin 1+ H (Negative) Ur Leukocyte Esterase Large H (Negative) Urine RBC >182 H (0-5) /hpf Urine WBC 506 H (0-5) /hpf Urine WBC Clumps Many H (None) /hpf Urine Yeast (Budding) Occasional H (None) /hpf Assessment and Plan (1) Status post hip surgery Current Visit: Yes Status: Acute Code(s): Z98.890 - OTHER SPECIFIED POSTPROCEDURAL STATES SNOMED Code(s): 433898603 (2) History of hip fracture Current Visit: Yes Status: Acute Code(s): Z87.81 - PERSONAL HISTORY OF ( HEALED) TRAUMATIC FRACTURE SNOMED Code(s): 091329657 (3) UTI (urinary tract infection) Current Visit: Yes Status: Acute Code(s): N39.0 - URINARY TRACT INFECTION, SITE NOT SPECIFIED SNOMED Code(s): 51332073 Plan: 1. Continue routine postoperative care and pain control. 2. Weightbearing as tolerated to the right lower extremity. 3. Dressing to stay intact for 10 days. Patient may shower with dressing in place. 4. Physical therapy. 5. Acute prophylaxis with Xarelto, SCDs and Tyrel hose. 6. UTI. Rocephin ordered. Urine culture is pending. 7. Anticipate discharge back to [facility] when able.
[2017-10-10] MEDS: RIVAROXABAN 10 MG TAB PO SCH (09:52)
[2017-10-10] MEDS: PANTOPRAZOLE 40 MG TABLET PO SCH (09:52)
[2017-10-10] MEDS: SENNOSIDES 8.6 MG TAB PO SCH (09:54)
[2017-10-10] MEDS: CINACALCET 30 MG TAB PO SCH (09:54)
[2017-10-10] MEDS: DRONABINOL 2.5 MG CAP PO SCH ×2 (10:05→17:45)
--- NOTE | 2017-10-10 10:22 | CDI ---
Last Revision, January 2017 Documentation Clarification Form Date: 10/10/17 From: Frances Stewart Admit Date: 10/09/2017 9:18:00 AM Patient Name: Ijeoma Vogel Visit Number: [id number] ATTENTION: The Clinical Documentation Specialists (CDI) and [facility] Coding Staff appreciate your assistance in clarifying documentation. Please respond to the clarification below the line at the bottom and electronically sign. The CDI & [facility] Coding staff will review the response and follow-up if needed. Please note: Queries are made part of the Legal Health Record. If you have any questions, please contact the author of this message via ITS. Dr. Anderson Carney , DO, Can you please render your opinion on the following documentation? Patients Admitting Diagnosis: Left Hip pain. Post-Operative Diagnosis: Failure of hardware status post left hip intramedullary nailing Procedure performed: Removal of hardware and Girdlestone arthroplasty left hip History/Risk Factors: stomach ulcers, musculoskeletal pain, hypothyroidism, hyperlipidemia, HTN, depression, anxiety, alzheimers, dementia Clinical Indicators: Vitals on admission: 97.0, P 73, R 14, 150/72, 98% Simple mask. WBC on admission: 16.6 Urinalysis done on 10/09: appearance turbid, protein 2+, ketones trace, blood large, bilirubin 1+, esterase large, rbc > 182, wbc 506, clumps many, yeast occasional. In the PN on 10/10 it states pt has an "indwelling catheter". 10/10 states "UTI ". Consult 10/09 states: Left hip prosthesis that is removed following infection by MRSA for a recent hip surgery. Treatment: Antibiotics: Rocephin IVPB Consults: Dr. Rao In order to accurately reflect this patients severity of illness, please clarify if you are treating the patient for a MRSA infection on admission and is the patients UTI possibly catheter related? Catheter associated UTI ? Yes or No UTI POA? Yes or No An expected post-procedural or post-surgical condition; An unexpected post-procedural or post-surgical condition related to surgical care; Other, please specify Unable to determine MRSA ruled in or out MRSA POA? Yes or no MRSA due to? Not a catheter associated UTI. Not related to surgery. Superficial wound positive for MRSA when swabbed at [facility]. MRSA HAILYA. MANUELD
[2017-10-10] MEDS: LACTATED RINGERS 1,000 ML IV SCH (11:20)
[2017-10-10] MEDS: HYDROcodone/APAP 5-325MG 1 EACH TAB PO PRN (12:58)
[2017-10-10] MEDS: SERTRALINE 50 MG TAB PO SCH (17:45)
[2017-10-10] MEDS: SENNOSIDES-DOCUSATE SODIUM 1 EACH TAB PO SCH (22:26)
--- NOTE | 2017-10-10 23:35 | PN ---
PROGRESS NOTE DATE OF SERVICE: 10/10/2017 PRESENTING COMPLAINT: Left hip hardware removed. INTERVAL HISTORY: This is a patient with infected left hip hardware that was removed. The patient is more awake today. Daughter at the bedside. Patient taking a liquid diet. Patient making some sounds. REVIEW OF SYSTEMS: Cannot be done, as the patient is aphasic. CURRENT MEDICATIONS: Reviewed that include: 1. IV Cortef. 2. LR. 3. Xarelto. EXAMINATION: Temperature 98.1, pulse 103, respirations 16, blood pressure 106/63, pulse 99% on 2L. GENERAL APPEARANCE: Sitting up, awake. EYES: Pupils equal. Conjunctivae pale. HEENT: External nose and ears normal. Oral cavity dry. NECK: JVD unable to assess. Mass not palpable. RESPIRATORY: Effort normal. LUNGS: Diminished breath sounds. CARDIOVASCULAR: First and second sounds normal. No edema. ABDOMEN: Soft, nontender. Liver and spleen not palpable. PSYCHIATRY: Patient is only making some sounds. MUSCULOSKELETAL: Dressing over the left hip. INVESTIGATIONS: White count 6.6, hemoglobin 12.5. UA positive for leuko esterase, WBC. ASSESSMENT: 1. 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 2. Severe osteopenia. 3. Primary osteoarthritis, multiple joints. 4. 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 5. Normocytic anemia, cause unknown. 6. Essential hypertension. 7. Hyperlipidemia. 8. Hypothyroidism. 9. Chronic dysphagia. 10.Postop hypotension likely from anesthesia. 11.Metabolic encephalopathy from IV Dilaudid, now recovered. 12.Acute urinary tract infection. PLAN: Will switch the patient to the home dose of dexamethasone, stop patient's Solu-Cortef. The patient's lactated Ringer's can be discontinued. Will also start the patient on IV ceftriaxone. MMODL / IJN: [id number] /
[2017-10-11] MEDS: LEVOTHYROXINE 50 MCG TAB PO SCH (05:53)
[2017-10-11] MEDS: DRONABINOL 2.5 MG CAP PO SCH ×2 (07:23→16:22)
[2017-10-11] MEDS: SENNOSIDES 8.6 MG TAB PO SCH (07:29)
[2017-10-11] MEDS: RIVAROXABAN 10 MG TAB PO SCH (07:29)
[2017-10-11] MEDS: CINACALCET 30 MG TAB PO SCH (07:29)
[2017-10-11] MEDS: PANTOPRAZOLE 40 MG TABLET PO SCH (07:30)
[2017-10-11] MEDS: cefTRIAXone IN SWFI 1,000 MG/10 ML SYRINGE IVP SCH ×2 (07:35)
[2017-10-11 07:58] LABS: Anion Gap 6 mmol/L; Blood Urea Nitrogen 27 mg/dL (7-17); Calcium 7.8 mg/dL (8.4-10.2); Carbon Dioxide 24 mmol/L (22-30); Chloride 117 mmol/L (98-107); Glucose 117 mg/dL (74-99); Potassium 3.9 mmol/L (3.5-5.1); Sodium 147 mmol/L (137-145)
--- NOTE | 2017-10-11 08:24 | P.PN ---
Subjective Progress Note Date: 10/11/17 This is an 87 year-old female who is status post girdle stone arthroplasty. This is postoperative day #2. Patient is nonverbal. Patient is resting comfortably in bed. No events overnight. Objective - Vital Signs Vital signs: Vital Signs Temp 97.4 F L 10/11/17 05:00 Pulse 87 10/11/17 05:00 Resp 18 10/11/17 05:00 BP 144/72 10/11/17 05:00 Pulse Ox 99 10/11/17 05:00 Intake & Output 10/10/17 10/11/17 10/11/17 18:59 06:59 18:59 Intake Total 840 1140 Output Total 435 Balance 405 1140 Intake: Intake, IV Titration 520 1040 Amount Sodium Chloride 0.9% 1, 520 1040 000 ml @ 65 mls/hr IV . [id number] [facility] Rx#:[id number] Oral 320 100 Output: Urine 435 Other: Voiding Method Indwelling Catheter Indwelling Catheter - Exam Vital signs are stable. Patient is lying comfortably in bed in no acute distress. Calf is soft and nontender to palpation. Dressing is clean, dry, and intact. Neurovascular status and circulatory status are intact. - Labs CBC & Chem 7: 10/09/17 14:02 10/11/17 07:20 Labs: Abnormal Lab Results - Last 24 Hours (Table) 10/11/17 Range/Units 07:20 Sodium 147 H (137-145) mmol/L Chloride 117 H (98-107) mmol/L BUN 27 H (7-17) mg/dL Glucose 117 H (74-99) mg/dL Calcium 7.8 L (8.4-10.2) mg/dL Microbiology - Last 24 Hours (Table) 10/09/17 00:10 Urine Culture - Preliminary Urine,Clean Catch Assessment and Plan (1) Status post hip surgery Current Visit: Yes Status: Acute Code(s): Z98.890 - OTHER SPECIFIED POSTPROCEDURAL STATES SNOMED Code(s): 961383429 (2) History of hip fracture Current Visit: Yes Status: Acute Code(s): Z87.81 - PERSONAL HISTORY OF ( HEALED) TRAUMATIC FRACTURE SNOMED Code(s): 561862540 (3) UTI (urinary tract infection) Current Visit: Yes Status: Acute Code(s): N39.0 - URINARY TRACT INFECTION, SITE NOT SPECIFIED SNOMED Code(s): 63175036 Plan: 1. Continue routine postoperative care and pain control. 2. Weightbearing as tolerated to the right lower extremity. 3. Dressing to stay intact for 10 days. Patient may shower with dressing in place. 4. Physical therapy. 5. DVT prophylaxis with Xarelto, SCDs and Tyrel hose. 6. UTI. Rocephin ordered. Urine culture is pending. 7. Anticipate discharge back to [facility] when able.
--- NOTE | 2017-10-11 08:32 | CDI ---
Documentation Clarification Form Date: 10/11/17 CDS: Frances Stewart RN Admit Date: 10/09/17 Patient Name: Ijeoma Vogel ATTENTION: The Clinical Documentation Specialists (CDI) and [facility] Coding Staff appreciate your assistance in clarifying documentation. Please respond to the clarification below the line at the bottom and electronically sign. The CDI & [facility] Coding staff will review the response and follow-up if needed. Please note: Queries are made part of the Legal Health Record. If you have any questions, please contact the author of this message via ITS. Rommel Allison, DO, Can you please render your opinion on the following documentation? Patients admitting diagnosis; Left hip pain, failure of hardware status post left hip intramedullary nailing. Patient came in with MRSA infection in left hip. UTI was presented on admission. History/Risk Factors: stomach ulcers, musculoskeletal pain, hypothyroidism, hyperlipidemia, HTN, depression, anxiety, Alzheimers, dementia Clinical Indicators: WBC on admission: 16.6 Vitals signs on admission: T 97.0, P 73, R 14, 150/72, 98% SIMPLE Other Clinical Indicators: Urinalysis done on 10/09: appearance turbid, protein 2+, ketones trace, blood large, bilirubin 1+, esterase large, RBC > 182, WBC 506, clumps many, yeast occasional. Consult 10/09 states: "Left hip prosthesis that is removed following infection by MRSA from a recent hip surgery". . Treatment: Monitor vitals, hardware removal Antibiotics: Cefazolin IVPB, Rocephin IVPB, In your professional opinion, please clarify if these findings signify one of the following conditions, whether the condition is POA, and cause, if known: Condition Sepsis ruled out Sepsis ruled in Severe sepsis Other, please specify Unable to determine Present on Admission: Yes No unable to determine MTDD
[2017-10-11] MEDS: HYDROmorphone 1 MG/ML 1 ML SYRINGE IVP PRN ×2 (08:53)
[2017-10-11] MEDS: HYDROcodone/APAP 5-325MG 1 EACH TAB PO PRN ×2 (12:08→20:58)
[2017-10-11] MEDS: SODIUM CHLORIDE 0.9% 1,000 ML IV SCH (12:11)
[2017-10-11 12:59] LABS: Basophils % (A) 0 %; Eosinophils % (A) 0 %; HCT 30.4 % (34.0-46.0); Hypochromasia Marked; Lymphocytes # (A) 1.4 k/uL (1.0-4.8); Lymphocytes % (A) 10 %; MCH 29.2 pg (25.0-35.0); MCHC 30.7 g/dL (31.0-37.0); Mean Platelet Volume 6.8; Monocytes # (A) 0.5 k/uL (0-1.0); Monocytes % (A) 4 %; Neutrophils # (A) 12.4 k/uL (1.3-7.7); Neutrophils % (A) 86 %; Platelet Count 220 k/uL (150-450); RDW 15.5 % (11.5-15.5); WBC 14.5 k/uL (3.8-10.6)
[2017-10-11 13:04] LABS: HGB 9.3 gm/dL (11.4-16.0)
[2017-10-11] MEDS: SERTRALINE 50 MG TAB PO SCH (16:22)
[2017-10-11] MEDS: SENNOSIDES-DOCUSATE SODIUM 1 EACH TAB PO SCH (20:58)
[2017-10-11] MEDS ORDERED: FLUCONAZOLE 150 MG TAB PO STA (23:42)
[2017-10-12] MEDS: SODIUM CHLORIDE 0.9% 1,000 ML IV SCH ×2 (01:17→17:27)
[2017-10-12] MEDS: LEVOTHYROXINE 50 MCG TAB PO SCH (05:53)
[2017-10-12] MEDS: HYDROmorphone 1 MG/ML 1 ML SYRINGE IVP PRN (06:22)
--- NOTE | 2017-10-12 07:14 | PN ---
PROGRESS NOTE DATE OF SERVICE: 10/11/2017 PRESENTING COMPLAINT: Left hip hardware removed. INTERVAL HISTORY: This is a patient who had a left hip infected hardware removed. Sitting up. Baseline confused. Does make some sounds, got a nataly bear in place. Getting some feeding with assistance. Appears comfortable. REVIEW OF SYSTEMS: Patient does not communicate. CURRENT MEDICATIONS: Reviewed that include IV ceftriaxone for UTI, on IV fluids. PHYSICAL EXAMINATION: Temperature 97.7, pulse 101, respiration 14, blood pressure 127/70, pulse ox 100% on 2 L. GENERAL APPEARANCE: Sitting up, awake. EYES: Pupils equal, conjunctivae are pale. HEENT: External appearance of nose and ear normal, oral cavity normal. NECK: JVD unable to assess. Mass not palpable. RESPIRATORY: Effort normal. LUNGS: Diminished breath sounds. CARDIOVASCULAR: First and second sounds normal. No edema. ABDOMEN: Soft, nontender. Liver and spleen not palpable. PSYCHIATRY: Patient does not communicate. MUSCULOSKELETAL: Dressing over the left hip. INVESTIGATIONS: White count 14.5, hemoglobin 9.3, sodium 147, potassium 3.9. ASSESSMENT: 1. 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 2. Severe osteopenia. 3. Primary osteoarthritis with multiple joints. 4. Major neurocognitive disorder from underlying late onset Alzheimer's dementia. 5. Hyponatremia from free water deficit/dehydration from decreased oral intake. 6. Normocytic anemia, cause undetermined. 7. Essential hypertension. 8. Hyperlipidemia. 9. Hypothyroidism. 10.Chronic dysphagia. 11.Postoperative hypotension from anesthesia. 12.Metabolic encephalopathy from IV Dilaudid, resolved. 13.Acute urinary tract infection growing Sisi albicans. PLAN: Continue with gentle hydration. Repeat a BMP in the morning. Given patient's age, prognosis is guarded. Will DC the ceftriaxone and give patient a dose of Diflucan. MMODL / IJN: [id number] /
[2017-10-12] MEDS: CEPHALEXIN 250 MG CAP PO SCH ×3 (08:13→18:05)
[2017-10-12] MEDS: PANTOPRAZOLE 40 MG TABLET PO SCH (08:13)
[2017-10-12] MEDS: CINACALCET 30 MG TAB PO SCH (08:13)
[2017-10-12] MEDS: RIVAROXABAN 10 MG TAB PO SCH (08:13)
[2017-10-12] MEDS: DRONABINOL 2.5 MG CAP PO SCH ×2 (08:21→15:53)
[2017-10-12] MEDS: SENNOSIDES-DOCUSATE SODIUM 1 EACH TAB PO SCH (08:22)
--- NOTE | 2017-10-12 08:36 | P.DS ---
Providers Date of admission: 10/09/17 09:18 Expected date of discharge: 10/12/17 Attending physician: Anderson Carney Consults: 10/09/17 13:00 Consult Physician Routine Consulting Provider: Pawel Rao Consult Reason/Comments: medical management Do you want consulting provider notified?: Already Contacted Primary care physician: Devonte Pan - Discharge Diagnosis(es) (1) Status post hip surgery Current Visit: Yes Status: Acute (2) History of hip fracture Current Visit: Yes Status: Acute (3) UTI (urinary tract infection) Current Visit: Yes Status: Acute Hospital Course: This is an 87-year-old female who was treated for an intertrochanteric left hip fracture with closed reduction and intramedullary hip screw fixation of the left hip. Upon follow-up the patient's x-rays showed displacement of the hardware in her left hip. The patient presents for evaluation. After discussion and consideration the patient's family elect to proceed with Girdlestone arthroplasty of the left hip. The patient is seen preoperatively by Dr. Carney and medically cleared for surgery by their primary care physician. Patient is admitted to [facility] on 10/09/2017 for Girdlestone arthroplasty. The procedures performed without complication or sequelae. The patient is doing well postoperatively. Labs and vital signs are stable on day of discharge. On day of discharge patient's hip incision is healing well. There is minimal erythema. There is no drainage noted at this time. There is minimal soft tissue swelling to the hip and thigh. Patient has full foot and ankle motion without difficulty or pain. Neurovascular status to the left lower extremity is intact. Patient is discharged to rehab in good condition. Please see med rec for accurate list of home medications. Plan - Discharge Summary Discharge Rx Participant: Yes New Discharge Prescriptions: New HYDROcodone/APAP 5-325MG [[place] 5-325] 1 - 2 tab PO Q4-6H PRN #84 tab PRN Reason: Pain Rivaroxaban [Xarelto] 10 mg PO DAILY #30 tab Sennosides [Senokot] 1 tab PO BID #60 tablet No Action Sertraline HCl [Zoloft] 50 mg PO DAILY@1700 Omeprazole [PriLOSEC] 20 mg PO DAILY Levothyroxine Sodium [Synthroid] 50 mcg PO DAILY Ergocalciferol [Vitamin D2] 50,000 unit PO FR Cinacalcet HCl [Sensipar] 30 mg PO DAILY Nystatin 100,000 Unit/gm Powd [Mycostatin Powder] 1 applic TOPICAL BID Losartan [Cozaar] 25 mg PO DAILY Acetaminophen Tab [Tylenol Tab] 325 - 650 mg PO Q8H PRN PRN Reason: Pain Sennosides [Senokot] 8.6 mg PO BID Ferrous Gluconate 324 mg PO BID HYDROcodone/APAP 10-325MG [[place] 10-325] 1 tab PO Q6HR PRN PRN Reason: Pain Dronabinol [Marinol] 2.5 mg PO BID Dexamethasone 1 mg PO BID Rivaroxaban [Xarelto] 10 mg PO DAILY Discharge Medication List Levothyroxine Sodium [Synthroid] 50 mcg PO DAILY 01/13/15 [History] Omeprazole [PriLOSEC] 20 mg PO DAILY 01/13/15 [History] Sertraline HCl [Zoloft] 50 mg PO DAILY@1700 01/13/15 [History] Cinacalcet HCl [Sensipar] 30 mg PO DAILY 08/15/17 [History] Ergocalciferol [Vitamin D2] 50,000 unit PO FR 08/15/17 [History] Losartan [Cozaar] 25 mg PO DAILY 08/15/17 [History] Nystatin 100,000 Unit/gm Powd [Mycostatin Powder] 1 applic TOPICAL BID 08/15/17 [History] Acetaminophen Tab [Tylenol Tab] 325 - 650 mg PO Q8H PRN 09/17/17 [History] Ferrous Gluconate 324 mg PO BID 09/17/17 [History] Sennosides [Senokot] 8.6 mg PO BID 09/17/17 [History] Dexamethasone 1 mg PO BID 10/04/17 [History] Dronabinol [Marinol] 2.5 mg PO BID 10/04/17 [History] HYDROcodone/APAP 10-325MG [[place] 10-325] 1 tab PO Q6HR PRN 10/04/17 [History] Rivaroxaban [Xarelto] 10 mg PO DAILY 10/09/17 [History] HYDROcodone/APAP 5-325MG [[place] 5-325] 1 - 2 tab PO Q4-6H PRN #84 tab 10/12/17 [ Rx] Rivaroxaban [Xarelto] 10 mg PO DAILY #30 tab 10/12/17 [Rx] Sennosides [Senokot] 1 tab PO BID #60 tablet 10/12/17 [Rx] Follow up Appointment(s)/Referral(s): [facility] Visiting Nurse, [NON-STAFF] - 1 Week Anderson Carney DO [Doctor of Osteopathic Medicine] - 2 Weeks Activity/Diet/Wound Care/Special Instructions: Weightbearing as tolerated with walker. Leave dressing intact. Dressing may be removed by nursing staff in 10 days. May shower with dressing on. Follow-up with [facility] in 2 weeks, please call with any questions or concerns [phone] Discharge Disposition: TRANSFER TO SNF/ECF
[2017-10-12] MEDS: SENNOSIDES 8.6 MG TAB PO SCH (10:50)
[2017-10-12 13:52] VITALS: BP 129/64; PULSE 79; RESP 14; TEMP 98
[2017-10-12] MEDS: SERTRALINE 50 MG TAB PO SCH (15:53)
--- NOTE | 2017-10-13 21:30 | PN ---
PROGRESS NOTE DATE OF SERVICE: 10/12/2017 PRESENT COMPLAINT: Left hip hardware removed. INTERVAL HISTORY: This patient was seen by me yesterday. Had left hip hardware removed. Sitting up, eyes closed, comfortable. The patient barely communicates. REVIEW OF SYSTEMS: The patient barely communicates. CURRENT MEDICATIONS: Reviewed. EXAMINATION: Temperature 98, pulse 79, respirations 14, blood pressure 129/64, pulse ox 100% on 2L. GENERAL APPEARANCE: Lying in bed, eyes closed. EYES: Pupils equal. Conjunctivae pale. HEENT: External nose and ears normal. Oral cavity normal. NECK: JVD unable to assess. Mass not palpable. RESPIRATORY: Effort normal. LUNGS: Diminished breath sounds. CARDIOVASCULAR: First and second sounds normal. No edema. ABDOMEN: Soft, nontender. Liver and spleen not palpable. PSYCHIATRY: Patient does not communicate. INVESTIGATIONS: White count 14.5, hemoglobin 9.3. ASSESSMENT: 1. 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 2. Severe osteopenia. 3. Primary osteoarthritis of multiple joints. 4. 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 5. Hyponatremia from free water and dehydration from decreased oral intake. 6. Normocytic anemia, cause undetermined. 7. Essential hypertension. 8. Hyperlipidemia. 9. Hypothyroidism. 10.Chronic dysphagia. 11.Postoperative hypotension from anesthesia, corrected. 12.Metabolic encephalopathy from IV Dilaudid, resolved. 13.Acute urinary tract infection, growing Sisi albicans, treated with Diflucan. PLAN: Patient is stable, getting transferred back to . The patient's daughter looking into getting hospice. Care was discussed. MMODL / IJN: [id number] /
== END 2017-10-12 19:59 | DRG 469 ==
LOC: 2ORMAIN 09:18 → 5MS5E 13:29 → EDSTATUS 14:00
PROVIDERS: ADMIT Orthopaedic Surgery; ATTEND Orthopaedic Surgery
PROC: 0SRS0JZ Replacement of Left Hip Joint, Femoral Surface with Synthetic Substitute, Open Approach (ICD-10-PCS; principal; 2017-10-09 11:40)
PROC: 0SPB04Z Removal of Internal Fixation Device from Left Hip Joint, Open Approach (ICD-10-PCS; principal; 2017-10-09 11:40)
DX: T84.125A Displacement of internal fixation device of left femur, initial encounter (principal); G92 Toxic encephalopathy; R47.01 Aphasia; E87.1 Hypo-osmolality and hyponatremia; B37.49 Other urogenital candidiasis; T84.621A Infection and inflammatory reaction due to internal fixation device of left femur, initial encounter; Y79.3 Surgical instruments, materials and orthopedic devices (including sutures) associated with adverse incidents; T40.2X5A Adverse effect of other opioids, initial encounter; Y92.230 Patient room in hospital as the place of occurrence of the external cause; G30.1 Alzheimer's disease with late onset; F02.80 Dementia in other diseases classified elsewhere, unspecified severity, without behavioral disturbance, psychotic disturbance, mood disturbance, and anxiety; D64.9 Anemia, unspecified; E78.5 Hyperlipidemia, unspecified; E03.9 Hypothyroidism, unspecified; R13.10 Dysphagia, unspecified; R26.9 Unspecified abnormalities of gait and mobility; F41.9 Anxiety disorder, unspecified; I10 Essential (primary) hypertension; M15.9 Polyosteoarthritis, unspecified; M85.80 Other specified disorders of bone density and structure, unspecified site; E86.0 Dehydration; R32 Unspecified urinary incontinence; F32.9 Major depressive disorder, single episode, unspecified; B95.62 Methicillin resistant Staphylococcus aureus infection as the cause of diseases classified elsewhere; Z79.01 Long term (current) use of anticoagulants; Z90.710 Acquired absence of both cervix and uterus; Z99.3 Dependence on wheelchair; Z79.890 Hormone replacement therapy; Z79.899 Other long term (current) drug therapy
CPT/HCPCS: 80048; 81001; 85025; 85610; 85730; 86850; 86900; 86901; 87086; 88305; 88311